=== PATIENT | male | born 1970 | race Caucasian/White ===

== ENCOUNTER 2022-03-14 23:42 | Emergency (ER) | payer SELFPAY ==
[~2022-03-14] VITALS: Ht 175.3 cm; Wt 72.7 kg
[2022-03-14 23:50] VITALS: BP 131/92
[2022-03-15] MEDS ORDERED: SULF1TAB49 PO (01:24)
[2022-03-15] MEDS ORDERED: sulfamethoxazole/trimethoprim DS (800/160mg) tablet PO ONE (01:25)
[2022-03-15] MEDS ORDERED: LIDOCAINE 1%/EPI 1:100,000 inj. 10 ML multi-dose vial IJ ONE (01:25)
[2022-03-15] MEDS ORDERED: TETanus/Pertussis (Acell)/Diphther VAC/PF (Tdap-Adult) 0.5ml syringe IMVAC ONE (01:25)
[2022-03-16] MEDS ORDERED: SULF1TAB49 PO (09:49)
== END 2022-03-15 02:07 | disposition home or self-care (01) ==
LOC: ER 23:42
DX: L02.11 Cutaneous abscess of neck (principal); L03.221 Cellulitis of neck; F17.200 Nicotine dependence, unspecified, uncomplicated; F15.90 Other stimulant use, unspecified, uncomplicated; Z79.2 Long term (current) use of antibiotics; W57.XXXA Bitten or stung by nonvenomous insect and other nonvenomous arthropods, initial encounter; Y93.89 Activity, other specified; Y92.89 Other specified places as the place of occurrence of the external cause; Y99.8 Other external cause status
CPT/HCPCS: 10060; 90471; 90715; 99283; A6449

== ENCOUNTER → 2022-03-15 | Emergency (ER) | payer SELFPAY ==
[~2022-03-15] VITALS: Ht 175.3 cm; Wt 72.7 kg
[~2022-03-15] MED LIST: SULF1TAB49 PO
[2022-03-15 16:04] VITALS: BP 152/91
== END | disposition left against medical advice (07) ==
LOC: ER 15:53
DX: S11.95XA Open bite of unspecified part of neck, initial encounter (principal); Z53.21 Procedure and treatment not carried out due to patient leaving prior to being seen by health care provider; W57.XXXA Bitten or stung by nonvenomous insect and other nonvenomous arthropods, initial encounter; Y93.9 Activity, unspecified; Y92.9 Unspecified place or not applicable; Y99.9 Unspecified external cause status

== ENCOUNTER 2022-03-16 07:57 | Emergency (ER) | payer SELFPAY ==
[~2022-03-16] VITALS: Ht 175.3 cm; Wt 72.7 kg
[2022-03-16 08:04] VITALS: BP 144/93
[2022-03-16] MEDS ORDERED: TETanus/Pertussis (Acell)/Diphther VAC/PF (Tdap-Adult) 0.5ml syringe IMVAC ONE (09:30)
[2022-03-16] MEDS ORDERED: LIDOcaine 1% w/EPI 1:100,000 30ml vial (MDV) IJ ONE (09:30)
[2022-03-16] MEDS ORDERED: SULF1TAB49 PO (09:49)
== END 2022-03-16 10:09 | disposition home or self-care (01) ==
LOC: ER 07:57
DX: L02.212 Cutaneous abscess of back [any part, except buttock and flank] (principal); F15.10 Other stimulant abuse, uncomplicated; Z79.899 Other long term (current) drug therapy
CPT/HCPCS: 10060; 90715; 99283; A6449

== ENCOUNTER 2022-03-17 19:44 | Emergency (ER) | payer SELFPAY ==
[~2022-03-17] VITALS: Ht 175.3 cm; Wt 61.9 kg
[2022-03-17 21:49] VITALS: BP 146/95
[2022-03-17] MEDS ORDERED: LIDOcaine 1% W/epiNEPHrine 1:100,000 20ml vial SQ ONE (23:30)
[2022-03-17] MEDS ORDERED: LIDOcaine 1% w/EPI 1:100,000 30ml vial (MDV) IJ ONE (23:35)
== END 2022-03-18 00:35 | disposition home or self-care (01) ==
LOC: ER 19:45
DX: L02.11 Cutaneous abscess of neck (principal); Z59.00 Homelessness unspecified; Z56.0 Unemployment, unspecified; F15.10 Other stimulant abuse, uncomplicated; Z79.899 Other long term (current) drug therapy
CPT/HCPCS: 10060; 99282

== ENCOUNTER 2022-03-18 23:46 | Emergency (ER) | payer OTHER ==
[~2022-03-18] VITALS: Ht 175.3 cm; Wt 70.0 kg
[2022-03-19 00:21] VITALS: BP 122/85
--- NOTE | 2022-03-19 00:32 | NUR ---
pt states he has 6 days of abx left to take . abx is for bug bites on neck.
== END 2022-03-19 00:50 | disposition home or self-care (01) ==
LOC: ER 23:47
DX: L02.212 Cutaneous abscess of back [any part, except buttock and flank] (principal); F17.200 Nicotine dependence, unspecified, uncomplicated; M54.2 Cervicalgia; Z59.00 Homelessness unspecified; Z56.0 Unemployment, unspecified
CPT/HCPCS: 99281

== ENCOUNTER 2022-03-26 03:18 | Emergency (ER) | payer SELFPAY ==
[~2022-03-26] VITALS: Ht 175.3 cm; Wt 68.1 kg
[2022-03-26 03:32] VITALS: BP 150/150
[2022-03-26] MEDS ORDERED: SULF1TAB49 PO (03:44)
== END 2022-03-26 03:54 | disposition home or self-care (01) ==
LOC: ER 03:19
DX: L08.9 Local infection of the skin and subcutaneous tissue, unspecified (principal); L02.212 Cutaneous abscess of back [any part, except buttock and flank]; F15.90 Other stimulant use, unspecified, uncomplicated; Z86.73 Personal history of transient ischemic attack (TIA), and cerebral infarction without residual deficits; Z56.0 Unemployment, unspecified; Z59.00 Homelessness unspecified; Z79.2 Long term (current) use of antibiotics
CPT/HCPCS: 99283

== ENCOUNTER 2022-04-01 00:20 | Emergency (ER) | payer SELFPAY ==
[~2022-04-01] VITALS: Ht 175.3 cm; Wt 70.5 kg
[2022-04-01 00:53] VITALS: BP 133/87
[2022-04-01] MEDS: DOXYCYCLINE 100MG CAPSULE PO STA (03:25)
== END 2022-04-01 03:29 | disposition home or self-care (01) ==
LOC: ER 00:21
DX: M79.10 Myalgia, unspecified site (principal); R50.9 Fever, unspecified; L08.89 Other specified local infections of the skin and subcutaneous tissue; F17.200 Nicotine dependence, unspecified, uncomplicated; Z59.00 Homelessness unspecified; Z56.0 Unemployment, unspecified; Z79.899 Other long term (current) drug therapy
CPT/HCPCS: 99283

== ENCOUNTER 2022-04-24 17:38 | Emergency (ER) | payer MEDICAID ==
[~2022-04-24] VITALS: Ht 172.7 cm; Wt 70.5 kg
[2022-04-24 17:41] VITALS: BP 142/90
[2022-04-24] MEDS ORDERED: MUPI22OI30 TOP (18:20)
== END 2022-04-24 18:27 | disposition home or self-care (01) ==
LOC: ER 17:38
DX: S11.95XA Open bite of unspecified part of neck, initial encounter (principal); S21.259A Open bite of unspecified back wall of thorax without penetration into thoracic cavity, initial encounter; F15.10 Other stimulant abuse, uncomplicated; Z59.00 Homelessness unspecified; Z56.0 Unemployment, unspecified; W57.XXXA Bitten or stung by nonvenomous insect and other nonvenomous arthropods, initial encounter; Y93.89 Activity, other specified; Y92.89 Other specified places as the place of occurrence of the external cause; Y99.8 Other external cause status
CPT/HCPCS: 99283

== ENCOUNTER 2022-05-01 02:59 | Emergency (ER) | payer MEDICAID ==
[~2022-05-01] VITALS: Ht 172.7 cm; Wt 67.3 kg
[~2022-05-01 02:59] MED LIST changes: +MUPI22OI30 TOP; -SULF1TAB49 PO
[2022-05-01 03:06] VITALS: BP 137/102
--- NOTE | 2022-05-01 03:10 | NUR ---
skin irritation to back of his neck.
== END 2022-05-01 04:57 | disposition home or self-care (01) ==
LOC: ER 03:01
DX: F22 Delusional disorders (principal); F15.20 Other stimulant dependence, uncomplicated; Z59.00 Homelessness unspecified; Z56.0 Unemployment, unspecified
CPT/HCPCS: 99281

== ENCOUNTER 2022-05-07 15:19 | Emergency (ER) | payer MEDICAID ==
[~2022-05-07] VITALS: Ht 174 cm; Wt 69.5 kg
[2022-05-07 16:17] VITALS: BP 132/91
== END 2022-05-07 18:22 | disposition home or self-care (01) ==
LOC: ER 15:20
DX: M54.2 Cervicalgia (principal); F22 Delusional disorders
CPT/HCPCS: 99281

== ENCOUNTER 2022-06-09 15:28 | Emergency (ER) | payer SELFPAY ==
[~2022-06-09] VITALS: Ht 175.3 cm; Wt 68.2 kg
[2022-06-09 16:04] VITALS: BP 141/99
[2022-06-09] MEDS ORDERED: MUPI22OI30 TOP (18:58)
== END 2022-06-09 19:18 | disposition home or self-care (01) ==
LOC: ER 15:29
DX: L03.811 Cellulitis of head [any part, except face] (principal); F22 Delusional disorders; F17.200 Nicotine dependence, unspecified, uncomplicated; F15.90 Other stimulant use, unspecified, uncomplicated; Z56.0 Unemployment, unspecified; Z59.00 Homelessness unspecified
CPT/HCPCS: 99283

== ENCOUNTER 2022-09-21 06:37 | Emergency (ER) | payer SELFPAY ==
[~2022-09-21] VITALS: Ht 175.3 cm; Wt 72.0 kg
[2022-09-21 06:49] VITALS: BP 169/107
[2022-09-21] MEDS ORDERED: PERM60CR19 TOP (20:13)
== END 2022-09-21 09:18 | disposition left against medical advice (07) ==
LOC: ER 06:38
DX: Z00.8 Encounter for other general examination (principal); Z53.21 Procedure and treatment not carried out due to patient leaving prior to being seen by health care provider
CPT/HCPCS: 99281

== ENCOUNTER 2022-09-21 17:13 | Emergency (ER) | payer SELFPAY ==
[~2022-09-21] VITALS: Ht 175.3 cm; Wt 65.2 kg
[2022-09-21 19:18] VITALS: BP 141/92
[2022-09-21] MEDS ORDERED: PERM60CR19 TOP (20:13)
== END 2022-09-21 20:17 | disposition home or self-care (01) ==
LOC: ER 17:13
DX: S00.96XA Insect bite (nonvenomous) of unspecified part of head, initial encounter (principal); F15.20 Other stimulant dependence, uncomplicated; Z59.00 Homelessness unspecified; Z56.0 Unemployment, unspecified; W57.XXXA Bitten or stung by nonvenomous insect and other nonvenomous arthropods, initial encounter; Y93.89 Activity, other specified; Y92.89 Other specified places as the place of occurrence of the external cause; Y99.8 Other external cause status
CPT/HCPCS: 99282

== ENCOUNTER 2022-10-06 22:44 | Emergency (ER) | payer SELFPAY ==
[~2022-10-06 22:44] MED LIST changes: -MUPI22OI30 TOP; +PERM60CR19 TOP
== END 2022-10-06 23:55 | disposition left against medical advice (07) ==
LOC: ER 22:45
DX: R11.10 Vomiting, unspecified (principal); Z53.21 Procedure and treatment not carried out due to patient leaving prior to being seen by health care provider

== ENCOUNTER 2022-11-07 00:06 | Emergency (ER) | payer OTHER ==
[~2022-11-07] VITALS: Ht 175.3 cm; Wt 68.2 kg
[2022-11-07 00:11] VITALS: BP 131/90
[2022-11-07] MEDS ORDERED: LIDOcaine 1% W/epiNEPHrine 1:100,000 20ml vial SQ ONE (01:05)
[2022-11-07] MEDS ORDERED: bacitracin 15gm ointment TP ONE (01:20)
[2022-11-07] MEDS ORDERED: cephalexin 250mg capsule PO ONE (01:20)
[2022-11-07] MEDS ORDERED: CEPH-585 PO (01:24)
== END 2022-11-07 03:25 | disposition home or self-care (01) ==
LOC: ER 00:06
DX: L02.811 Cutaneous abscess of head [any part, except face] (principal); F17.200 Nicotine dependence, unspecified, uncomplicated; F15.20 Other stimulant dependence, uncomplicated; Z59.00 Homelessness unspecified; Z56.0 Unemployment, unspecified
CPT/HCPCS: 10060; 99283; A6449

== ENCOUNTER 2022-12-06 23:15 | Emergency (ER) | payer SELFPAY ==
[~2022-12-06] VITALS: Ht 172.7 cm; Wt 68.2 kg
[2022-12-06 23:22] VITALS: BP 141/96
[2022-12-06] MEDS ORDERED: CEPH-585 PO (23:47)
== END 2022-12-07 | disposition home or self-care (01) ==
LOC: ER 23:16
DX: L02.212 Cutaneous abscess of back [any part, except buttock and flank] (principal); F15.20 Other stimulant dependence, uncomplicated; Z59.00 Homelessness unspecified; Z56.0 Unemployment, unspecified
CPT/HCPCS: 99283

== ENCOUNTER 2023-02-19 16:22 | Emergency (ER) | payer SELFPAY ==
[~2023-02-19] VITALS: Ht 175.3 cm; Wt 74.5 kg
[~2023-02-19 16:22] MED LIST changes: +CEPH-585 PO; -PERM60CR19 TOP
[2023-02-19 17:33] VITALS: BP 136/93; PULSE 99; RESP 15; TEMP 97.8; O2SAT 100
[2023-02-19] MEDS ORDERED: PERM60CR19 TOP (17:43)
--- NOTE | 2023-02-19 17:52 | NUR ---
PT DC [facility].
== END 2023-02-19 17:52 | disposition home or self-care (01) ==
LOC: ER 16:22
DX: B86 Scabies (principal); F15.90 Other stimulant use, unspecified, uncomplicated; Z56.0 Unemployment, unspecified; Z59.00 Homelessness unspecified; Z79.2 Long term (current) use of antibiotics
CPT/HCPCS: 99282; 99283

== ENCOUNTER 2023-04-15 05:16 | Emergency (ER) | payer SELFPAY ==
[~2023-04-15] VITALS: Ht 175.3 cm; Wt 68.2 kg
[~2023-04-15 05:16] MED LIST changes: +ASPI-1264 PO; +FURO-149 PO
[2023-04-15 06:12] LABS: BASOPHILS # (AUTO) 0.3 X10'3 (0-0.2); BASOPHILS % (AUTO) 1.9 % (0-1); EOSINOPHILS # (AUTO) 0.4 X10'3 (0-0.9); EOSINOPHILS % (AUTO) 2.6 % (0-6); HEMATOCRIT 42.3 % (42.0-52.0); HEMOGLOBIN 14.1 g/dl (14.0-17.9); LYMPHOCYTES # (AUTO) 2.3 X10'3 (1.1-4.8); LYMPHOCYTES % (AUTO) 17.3 % (21-51); MEAN CORPUSCULAR HEMOGLOBIN 29.2 PG (27.0-31.0); MEAN CORPUSCULAR HGB CONC 33.4 g/dL (33.0-36.5); MEAN CORPUSCULAR VOLUME 87.4 FL (78-98); MEAN PLATELET VOLUME 7.8 FL (7.4-10.4); MONOCYTES # (AUTO) 0.6 X10'3 (0-0.9); MONOCYTES % (AUTO) 4.7 % (2-12); NEUTROPHILS % (AUTO) 73.5 % (42-75); PLATELET COUNT 374 X10'3 (140-440); RED BLOOD COUNT 4.84 X10'6 (4.70-6.10); RED CELL DISTRIBUTION WIDTH 15.7 % (11.5-14.5); WHITE BLOOD COUNT 13.6 X10'3 (4.5-11.0)
[2023-04-15 06:15] LABS: ALANINE AMINOTRANSFERASE 85 U/L (12-78); ALBUMIN/GLOBULIN RATIO 0.8 (1.1-1.5); ALKALINE PHOSPHATASE 71 IU/L (46-116); ANION GAP 7 (8-16); ASPARTATE AMINO TRANSFERASE 46 U/L (10-37); BILIRUBIN,TOTAL 0.4 MG/DL (0.1-1.0); BLOOD UREA NITROGEN 26 MG/DL (7-18); CALCIUM 8.5 MG/DL (8.5-10.1); CHLORIDE 103 MMOL/L (99-107); CREATININE 1.37 MG/DL (0.60-1.10); GLUCOSE 120 MG/DL (70-104); SODIUM 137 MMOL/L (135-145); TOTAL CARBON DIOXIDE 27.3 MMOL/L (24-32); TOTAL PROTEIN 6.7 G/DL (6.4-8.2); eCRCL 62 ML/MIN; eGFR 55 ML/MIN
[2023-04-15 06:17] LABS: POTASSIUM 4.3 MMOL/L (3.5-5.1); PRO BRAIN NATRIURETIC PEPTIDE 16260 PG/ML (0-125)
[2023-04-15] MEDS ORDERED: furosemide 10 MG/1 ML 10ml inj IV ONE (06:25)
[2023-04-15 06:44] VITALS: BP 139/99; PULSE 117; TEMP 97.6; O2SAT 98
[2023-04-15 06:58] LABS: APTT 27 SECONDS (22-32); PROTHROMBIN TIME 11.1 SECONDS (9.0-12.0)
[2023-04-15 07:02] VITALS: RESP 19
== END 2023-04-15 08:49 | disposition left against medical advice (07) ==
LOC: ER 05:17
DX: I50.9 Heart failure, unspecified (principal); Z91.199 Patient's noncompliance with other medical treatment and regimen due to unspecified reason; J44.9 Chronic obstructive pulmonary disease, unspecified; F15.90 Other stimulant use, unspecified, uncomplicated; Z79.82 Long term (current) use of aspirin; Z79.899 Other long term (current) drug therapy
CPT/HCPCS: 36415; 71045; 80053; 83880; 84484; 85025; 85610; 85730; 93005; 96374; 99285; J1940

== ENCOUNTER 2023-04-28 19:37 | Inpatient (IN) | payer MEDICAID ==
[~2023-04-28] VITALS: Ht 175.3 cm; Wt 66.5 kg
[~2023-04-28 19:37] MED LIST changes: -CEPH-585 PO
[2023-04-28] MEDS ORDERED: carVEDilol 3.125mg tablet PO ONE (20:05)
[2023-04-28] MEDS ORDERED: carVEDilol 3.125mg tablet PO SCH (20:05)
[2023-04-28] MEDS ORDERED: nitroGLYCERIN 0.4mg/hour patch TD ONE (20:20)
[2023-04-28] MEDS ORDERED: aspirin 81mg tab.chew PO ONE (20:20)
[2023-04-28 20:30] LABS: BASOPHILS # (AUTO) 0.1 X10'3 (0-0.2); BASOPHILS % (AUTO) 1.3 % (0-1); EOSINOPHILS # (AUTO) 0.2 X10'3 (0-0.9); EOSINOPHILS % (AUTO) 1.4 % (0-6); HEMATOCRIT 39.3 % (42.0-52.0); HEMOGLOBIN 13.1 g/dl (14.0-17.9); LYMPHOCYTES # (AUTO) 2.6 X10'3 (1.1-4.8); LYMPHOCYTES % (AUTO) 24.3 % (21-51); MEAN CORPUSCULAR HEMOGLOBIN 29.2 PG (27.0-31.0); MEAN CORPUSCULAR HGB CONC 33.4 g/dL (33.0-36.5); MEAN CORPUSCULAR VOLUME 87.4 FL (78-98); MEAN PLATELET VOLUME 7.9 FL (7.4-10.4); MONOCYTES # (AUTO) 0.7 X10'3 (0-0.9); MONOCYTES % (AUTO) 6.6 % (2-12); NEUTROPHILS % (AUTO) 66.4 % (42-75); PLATELET COUNT 394 X10'3 (140-440); RED BLOOD COUNT 4.49 X10'6 (4.70-6.10); RED CELL DISTRIBUTION WIDTH 15.3 % (11.5-14.5); WHITE BLOOD COUNT 10.6 X10'3 (4.5-11.0)
[2023-04-28] MEDS ORDERED: nitroGLYCERIN 0.4mg SUBLingual tab SL PRN (20:30)
[2023-04-28 20:44] LABS: APTT 27 SECONDS (22-32); INR 1.4 INR; PROTHROMBIN TIME 14.4 SECONDS (9.0-12.0)
[2023-04-28 20:45] LABS: ALANINE AMINOTRANSFERASE 169 U/L (12-78); ALBUMIN 2.6 G/DL (3.4-5.0); ALBUMIN/GLOBULIN RATIO 0.7 (1.1-1.5); ALKALINE PHOSPHATASE 71 IU/L (46-116); ANION GAP 11 (8-16); ASPARTATE AMINO TRANSFERASE 49 U/L (10-37); BILIRUBIN,TOTAL 0.7 MG/DL (0.1-1.0); BLOOD UREA NITROGEN 32 MG/DL (7-18); BUN/CREATININE RATIO 20.8 (10.0-20.0); CALCIUM 8.8 MG/DL (8.5-10.1); CHLORIDE 101 MMOL/L (99-107); CREATININE 1.54 MG/DL (0.60-1.10); GLUCOSE 126 MG/DL (70-104); POTASSIUM 4.5 MMOL/L (3.5-5.1); SODIUM 136 MMOL/L (135-145); TOTAL PROTEIN 6.1 G/DL (6.4-8.2); eCRCL 57 ML/MIN; eGFR 48 ML/MIN
--- NOTE | 2023-04-28 20:46 | NUR ---
REVIEWED COPYWRITER ASSESSMENT, AGREE WITH ASSESSMENT.
[2023-04-28 20:53] LABS: PRO BRAIN NATRIURETIC PEPTIDE 22518 PG/ML (0-125)
[2023-04-28 20:54] LABS: ETHANOL < 10 MG/DL (<10)
[2023-04-28] MEDS ORDERED: metoprolol tartrate 1mg/ml inj IV ONE (21:05)
--- NOTE | 2023-04-28 21:20 | NUR ---
PATIENT YELLING, "I CAN'T BREATH." MD AT BEDSIDE, REPEAT EKG PERFORMED.
[2023-04-28] MEDS ORDERED: LORazepam 2 mg/ml vial IV ONE (21:25)
[2023-04-28] MEDS ORDERED: heparin 25,000 UNIT/250ml bag 250 ML IV PRN (21:25)
[2023-04-28] MEDS ORDERED: heparin 10,000 units/1 ML INJ IV ONE (21:25)
[2023-04-28] MEDS ORDERED: heparin 10,000 units/1 ML INJ IV PRN (21:30)
--- NOTE | 2023-04-28 21:34 | NUR ---
HOSPITALIST AT BEDSIDE
[2023-04-28] MEDS ORDERED: magnesium 2GM in 50ml NS 50 ML IV PRN (22:10)
[2023-04-28] MEDS ORDERED: HYDROcodone/acetaminophen 10/325mg tab PO PRN (22:10)
[2023-04-28] MEDS ORDERED: PERFLUTREN PROTEIN-A MICROSPHR (Optison) 0.22 MG/ML 3ML VIAL IV PRN (22:10)
[2023-04-28] MEDS ORDERED: magnesium hydroxide 30ml (MOM) UD suspension PO PRN (22:10)
[2023-04-28] MEDS ORDERED: mag hydrox/Alum hydrox/simeth 30ml oral suspension PO PRN (22:10)
[2023-04-28] MEDS ORDERED: albuterol 2.5 MG/3 ML nebule NEB PRN (22:10)
[2023-04-28] MEDS ORDERED: magnesium 4gm in 100ml NS 100 ML IV PRN (22:10)
[2023-04-28] MEDS ORDERED: ondansetron/PF 4mg/2ml inj IV PRN (22:10)
[2023-04-28] MEDS ORDERED: potassium Cl 20 mEq SR tablet PO PRN ×2 (22:10)
[2023-04-28] MEDS ORDERED: ipratropium/albuterol 3ml nebule NEB PRN (22:10)
[2023-04-28] MEDS ORDERED: acetaminophen 325mg tablet PO PRN ×2 (22:10)
[2023-04-28] MEDS ORDERED: potassium Cl 40MEQ/1/2NS 520ml 520 ML IV PRN (22:10)
[2023-04-28 23:12] VITALS: PULSE 99; RESP 14; O2SAT 99
--- NOTE | 2023-04-28 23:32 | NUR ---
PATIENT RESTING IN BED WITH EYES CLOSED, RESPIRATIONS EVEN AND UNLABORED, NO ACUTE DISTRESS NOTED AT THIS TIME. CALL LIGHT WITHIN REACH.
--- NOTE | 2023-04-28 23:58 | NUR ---
ATTEMPTED TO CALL REPORT TO PCU, NURSE NOT ASSIGNED AT THIS TIME, TO CALL BACK.
[2023-04-29] VITALS (11 sets, daily range): BP systolic 92–118; BP diastolic 61–93; PULSE 90–108; RESP 12–18; TEMP 97.4–98.8; O2SAT 90–99
--- NOTE | 2023-04-29 02:44 | NUR ---
provider paged PAGER ID: [phone] MESSAGE: [id number]. Machelle Newton Pt came to unit on heparin gtt, in order history looks like heparin gtt is complete and pt is to get sub Q heparin 5,000 units. Please clarify if pt should be off heparin gtt. Liz Stanley RN, [phone]
--- NOTE | 2023-04-29 02:47 | NUR ---
heparin gtt discontinued and pt will get sub Q heparin per MD orders since pts triponins are WNL.
--- NOTE | 2023-04-29 06:19 | NUR ---
Patient in room PCU 3016. I have received report from yane DUMONT and had the opportunity to ask questions and assume patient care.
--- NOTE | 2023-04-29 06:19 | NUR ---
Problems reprioritized. Patient report given, questions answered & plan of care reviewed with Mando DUMONT. Pt stable at shift change.
[2023-04-29] MEDS: K and/or MAG REPLACEMENT MC SCH ×2 (08:00→20:00)
[2023-04-29 08:10] LABS: BASOPHILS # (AUTO) 0.2 X10'3 (0-0.2); BASOPHILS % (AUTO) 1.9 % (0-1); EOSINOPHILS # (AUTO) 0.3 X10'3 (0-0.9); EOSINOPHILS % (AUTO) 2.3 % (0-6); HEMATOCRIT 40.7 % (42.0-52.0); HEMOGLOBIN 13.3 g/dl (14.0-17.9); LYMPHOCYTES # (AUTO) 2.4 X10'3 (1.1-4.8); LYMPHOCYTES % (AUTO) 21.8 % (21-51); MEAN CORPUSCULAR HEMOGLOBIN 28.7 PG (27.0-31.0); MEAN CORPUSCULAR HGB CONC 32.7 g/dL (33.0-36.5); MEAN CORPUSCULAR VOLUME 87.8 FL (78-98); MEAN PLATELET VOLUME 8.3 FL (7.4-10.4); MONOCYTES # (AUTO) 0.8 X10'3 (0-0.9); MONOCYTES % (AUTO) 7.6 % (2-12); NEUTROPHILS # (AUTO) 7.4 X10'3 (1.8-7.7); NEUTROPHILS % (AUTO) 66.4 % (42-75); PLATELET COUNT 383 X10'3 (140-440); RED BLOOD COUNT 4.64 X10'6 (4.70-6.10); RED CELL DISTRIBUTION WIDTH 15.2 % (11.5-14.5); WHITE BLOOD COUNT 11.1 X10'3 (4.5-11.0)
[2023-04-29] MEDS: docusate sod 100mg capsule PO SCH ×2 (08:19→20:41)
[2023-04-29] MEDS: furosemide 20 MG/2 ML vial IV SCH ×2 (08:19→20:02)
[2023-04-29] MEDS: heparin, porcine 5000 units/ml vial SQ SCH ×2 (08:20→20:42)
[2023-04-29 08:27] LABS: ALANINE AMINOTRANSFERASE 154 U/L (12-78); ALBUMIN 2.5 G/DL (3.4-5.0); ALBUMIN/GLOBULIN RATIO 0.8 (1.1-1.5); ALKALINE PHOSPHATASE 63 IU/L (46-116); ANION GAP 11 (8-16); ASPARTATE AMINO TRANSFERASE 45 U/L (10-37); BILIRUBIN,TOTAL 0.9 MG/DL (0.1-1.0); BLOOD UREA NITROGEN 27 MG/DL (7-18); BUN/CREATININE RATIO 19.9 (10.0-20.0); CALCIUM 8.6 MG/DL (8.5-10.1); CHLORIDE 103 MMOL/L (99-107); CREATININE 1.36 MG/DL (0.60-1.10); GLUCOSE 98 MG/DL (70-104); POTASSIUM 4.4 MMOL/L (3.5-5.1); SODIUM 136 MMOL/L (135-145); TOTAL CARBON DIOXIDE 22.4 MMOL/L (24-32); TOTAL PROTEIN 5.8 G/DL (6.4-8.2); eCRCL 61 ML/MIN; eGFR 55 ML/MIN
[2023-04-29 08:31] LABS: MAGNESIUM 1.9 MG/DL (1.5-2.4)
[2023-04-29 11:11] LABS: BILIRUBIN,URINE NEGATIVE (Neg); CLARITY,URINE CLEAR (Clear); COLOR,URINE YELLOW (Yellow); GLUCOSE, URINE NEGATIVE (Neg); KETONES,URINE NEGATIVE (Neg); LEUKOCYTE ESTERASE ,URINE NEGATIVE (Neg); NITRITES, URINE NEGATIVE (Neg); OCCULT BLOOD,URINE NEGATIVE (Neg); PH,URINE 5.5 (4.8-8.0); PROTEIN,URINE NEGATIVE (Neg); UROBILINOGEN,URINE 0.2 E.U/dL (0.2-1.0)
[2023-04-29 11:18] LABS: UA COLLECTION TYPE NON-SPECIFIED
[2023-04-29 11:30] LABS: URINE AMPHETAMINE SCREEN NEGATIVE (Neg); URINE BARBITUATE SCREEN NEGATIVE (Neg); URINE BENZODIAZEPINES SCREEN NEGATIVE (Neg); URINE CANNABINOID SCREEN NEGATIVE (Neg); URINE COCAINE SCREEN NEGATIVE (Neg); URINE OPIATE SCREEN NEGATIVE (Neg); URINE PHENCYCLIDINE SCREEN NEGATIVE (Neg)
[2023-04-29] MEDS ORDERED: FURO40TA4 PO (12:47)
[2023-04-29] MEDS ORDERED: ASPI-103 PO (12:47)
[2023-04-29] MEDS: HYDROcodone/acetaminophen 5mg/325mg tablet PO PRN (14:13)
--- NOTE | 2023-04-29 18:29 | NUR ---
Problems reprioritized. Patient report given TO ROSI RN, questions answered & plan of care reviewed with .
[2023-04-29] MEDS: carvedilol 6.25mg tablet PO SCH (20:41)
[2023-04-29] MEDS: sacubitril/valsartan 24mg-26mg tablet PO SCH (20:42)
[2023-04-30] VITALS (11 sets, daily range): BP systolic 91–121; BP diastolic 67–88; PULSE 71–99; RESP 14–20; TEMP 97–97.6; O2SAT 90–100
--- NOTE | 2023-04-30 06:43 | NUR ---
Patient in room PCU 3016. I have received report from ROSI RN and had the opportunity to ask questions and assume patient care.
[2023-04-30] MEDS: K and/or MAG REPLACEMENT MC SCH ×2 (08:00→20:00)
--- NOTE | 2023-04-30 08:26 | NUR ---
PAGER ID: [phone] MESSAGE: JULIA BAUTISTA, PCU, [id number], RE: [id number]. POSS. NASAL MRSA SWAB. LD
[2023-04-30] MEDS: carvedilol 6.25mg tablet PO SCH ×2 (08:32→21:51)
[2023-04-30] MEDS: aspirin 325mg tablet, delayed-release (Ecotrin) PO SCH (08:32)
[2023-04-30] MEDS: furosemide 20 MG/2 ML vial IV SCH ×2 (08:34→21:53)
[2023-04-30] MEDS: docusate sod 100mg capsule PO SCH ×2 (08:34→21:50)
[2023-04-30] MEDS: EMPAGLIFLOZIN 10 MG TABLET PO SCH (08:34)
[2023-04-30] MEDS: heparin, porcine 5000 units/ml vial SQ SCH ×2 (08:34→21:53)
[2023-04-30] MEDS: sacubitril/valsartan 24mg-26mg tablet PO SCH ×2 (08:35→21:50)
[2023-04-30 08:41] LABS: BASOPHILS # (AUTO) 0.1 X10'3 (0-0.2); BASOPHILS % (AUTO) 0.9 % (0-1); EOSINOPHILS # (AUTO) 0.3 X10'3 (0-0.9); EOSINOPHILS % (AUTO) 2.6 % (0-6); HEMATOCRIT 41.6 % (42.0-52.0); HEMOGLOBIN 13.5 g/dl (14.0-17.9); LYMPHOCYTES # (AUTO) 2.4 X10'3 (1.1-4.8); LYMPHOCYTES % (AUTO) 17.4 % (21-51); MEAN CORPUSCULAR HEMOGLOBIN 28.7 PG (27.0-31.0); MEAN CORPUSCULAR HGB CONC 32.5 g/dL (33.0-36.5); MEAN CORPUSCULAR VOLUME 88.2 FL (78-98); MEAN PLATELET VOLUME 8.4 FL (7.4-10.4); MONOCYTES # (AUTO) 0.8 X10'3 (0-0.9); NEUTROPHILS % (AUTO) 73.1 % (42-75); PLATELET COUNT 376 X10'3 (140-440); RED BLOOD COUNT 4.71 X10'6 (4.70-6.10); RED CELL DISTRIBUTION WIDTH 15.1 % (11.5-14.5); WHITE BLOOD COUNT 13.6 X10'3 (4.5-11.0)
[2023-04-30 08:51] LABS: ALANINE AMINOTRANSFERASE 118 U/L (12-78); ALBUMIN 2.3 G/DL (3.4-5.0); ALBUMIN/GLOBULIN RATIO 0.7 (1.1-1.5); ALKALINE PHOSPHATASE 63 IU/L (46-116); ANION GAP 10 (8-16); ASPARTATE AMINO TRANSFERASE 32 U/L (10-37); BILIRUBIN,TOTAL 0.4 MG/DL (0.1-1.0); BLOOD UREA NITROGEN 35 MG/DL (7-18); BUN/CREATININE RATIO 26.5 (10.0-20.0); CALCIUM 8.4 MG/DL (8.5-10.1); CHLORIDE 103 MMOL/L (99-107); CREATININE 1.32 MG/DL (0.60-1.10); GLUCOSE 100 MG/DL (70-104); MAGNESIUM 1.8 MG/DL (1.5-2.4); POTASSIUM 4.2 MMOL/L (3.5-5.1); SODIUM 135 MMOL/L (135-145); TOTAL PROTEIN 5.7 G/DL (6.4-8.2); eCRCL 63 ML/MIN; eGFR 57 ML/MIN
[2023-04-30] MEDS ORDERED: CefTRIAXone/D5W-Rocephin 1gm 50 ML IV ONE (09:00)
[2023-04-30] MEDS ORDERED: azithromycin 250mg tablet PO ONE (09:00)
--- NOTE | 2023-04-30 12:21 | NUR ---
PT. 02 SATURATION REPORTED AT 89% WHEN SLEEPING, BUT BETTER 95 AND ABOVE IN THE DAYTIME. PT. ON 2L NC ON MY MORNING SHIFT. TITRATED TO 1L PER DM ORDERS. WILL CONTINUE TO MONITOR. Addendum: 04/30/23 at 1248 by Aman Rock RN PT. 99% RA. PT. ONLY FALLS TO 89% AT NIGHT.
--- NOTE | 2023-04-30 18:32 | NUR ---
Problems reprioritized. Patient report given TO EDGARDO DUMONT, questions answered & plan of care reviewed with .
--- NOTE | 2023-04-30 18:40 | NUR ---
Patient in room PCU 3016. I have received report from Mando DUMONT and had the opportunity to ask questions and assume patient care.
[2023-05-01 02:00] VITALS: BP 106/74; PULSE 83; RESP 22; TEMP 96.7; O2SAT 98
[2023-05-01] MEDS: HYDROcodone/acetaminophen 5mg/325mg tablet PO PRN (02:21)
[2023-05-01 05:24] VITALS: O2SAT 90
[2023-05-01 06:00] VITALS: BP 106/81; PULSE 96; RESP 16; TEMP 97.7; O2SAT 98
--- NOTE | 2023-05-01 06:47 | NUR ---
Patient in room PCU 3016. I have received report from EDGARDO DUMONT and had the opportunity to ask questions and assume patient care.
--- NOTE | 2023-05-01 06:50 | NUR ---
Problems reprioritized. Patient report given, questions answered & plan of care reviewed with Mando DUMONT.
[2023-05-01 07:14] LABS: BASOPHILS # (AUTO) 0.1 X10'3 (0-0.2); EOSINOPHILS # (AUTO) 0.5 X10'3 (0-0.9); EOSINOPHILS % (AUTO) 3.3 % (0-6); HEMATOCRIT 44.6 % (42.0-52.0); HEMOGLOBIN 14.8 g/dl (14.0-17.9); LYMPHOCYTES # (AUTO) 2.8 X10'3 (1.1-4.8); LYMPHOCYTES % (AUTO) 20.6 % (21-51); MEAN CORPUSCULAR HGB CONC 33.1 g/dL (33.0-36.5); MEAN CORPUSCULAR VOLUME 87.6 FL (78-98); MEAN PLATELET VOLUME 8.8 FL (7.4-10.4); MONOCYTES # (AUTO) 0.9 X10'3 (0-0.9); MONOCYTES % (AUTO) 6.5 % (2-12); NEUTROPHILS # (AUTO) 9.3 X10'3 (1.8-7.7); NEUTROPHILS % (AUTO) 68.6 % (42-75); PLATELET COUNT 443 X10'3 (140-440); WHITE BLOOD COUNT 13.5 X10'3 (4.5-11.0)
[2023-05-01 07:37] LABS: ALANINE AMINOTRANSFERASE 100 U/L (12-78); ALBUMIN 2.4 G/DL (3.4-5.0); ALBUMIN/GLOBULIN RATIO 0.6 (1.1-1.5); ALKALINE PHOSPHATASE 59 IU/L (46-116); ANION GAP 5 (8-16); ASPARTATE AMINO TRANSFERASE 28 U/L (10-37); BILIRUBIN,TOTAL 0.4 MG/DL (0.1-1.0); BLOOD UREA NITROGEN 31 MG/DL (7-18); BUN/CREATININE RATIO 22.8 (10.0-20.0); CALCIUM 8.7 MG/DL (8.5-10.1); CHLORIDE 102 MMOL/L (99-107); CREATININE 1.36 MG/DL (0.60-1.10); GLUCOSE 97 MG/DL (70-104); SODIUM 133 MMOL/L (135-145); TOTAL CARBON DIOXIDE 26.5 MMOL/L (24-32); TOTAL PROTEIN 6.2 G/DL (6.4-8.2); eCRCL 61 ML/MIN; eGFR 55 ML/MIN
[2023-05-01] MEDS ORDERED: CefTRIAXone/D5W-Rocephin 1gm 50 ML IV SCH (08:00)
[2023-05-01] MEDS: K and/or MAG REPLACEMENT MC SCH (08:00)
[2023-05-01] MEDS ORDERED: azithromycin 250mg tablet PO SCH (08:00)
[2023-05-01] MEDS: furosemide 20 MG/2 ML vial IV SCH (08:25)
[2023-05-01] MEDS: aspirin 325mg tablet, delayed-release (Ecotrin) PO SCH (08:26)
[2023-05-01] MEDS: heparin, porcine 5000 units/ml vial SQ SCH (08:26)
[2023-05-01] MEDS: docusate sod 100mg capsule PO SCH (08:26)
[2023-05-01] MEDS: sacubitril/valsartan 24mg-26mg tablet PO SCH (08:26)
[2023-05-01] MEDS: EMPAGLIFLOZIN 10 MG TABLET PO SCH (08:27)
[2023-05-01] MEDS: carvedilol 6.25mg tablet PO SCH (08:27)
--- NOTE | 2023-05-01 10:12 | NUR ---
PT. LEFT AMA, WAS TOLD ABOUT THE CONSEQUENCES OF LEAVING WITHOUT DOCTORS ADVICE. IV CANULA WHOLE AND INTACT UPON REMOVAL. PT. LEFT WITH ALL BELONGINGS. PT SAFELY ESCORTED OUT OF BUILDING. PT. WAS STABLE, ALERT, AND ORIENTATED WHEN HE LEFT AMA.
== END 2023-05-01 09:54 | disposition left against medical advice (07) | DRG 194 ==
LOC: ER 19:38 → ED HOLD 22:15 → EDBEDREQ 23:53 → PCU 3S 04-29 00:41
PROVIDERS: ADMIT Family Medicine; ATTEND Family Medicine
DX: I50.43 Acute on chronic combined systolic (congestive) and diastolic (congestive) heart failure (principal); N17.0 Acute kidney failure with tubular necrosis; F17.290 Nicotine dependence, other tobacco product, uncomplicated; J44.9 Chronic obstructive pulmonary disease, unspecified; R40.0 Somnolence; F41.9 Anxiety disorder, unspecified; Z53.21 Procedure and treatment not carried out due to patient leaving prior to being seen by health care provider; N18.9 Chronic kidney disease, unspecified; Z79.82 Long term (current) use of aspirin; Z79.899 Other long term (current) drug therapy; Z82.49 Family history of ischemic heart disease and other diseases of the circulatory system; Z59.00 Homelessness unspecified
CPT/HCPCS: 36415; 71045; 80053; 80305; 80320; 81003; 83605; 83735; 83880; 84484; 85025; 85610; 85730; 87040; 87081; 93005; 93306; 94760; 99285; G0378; J0696; J1644; J1940; J2060; J3490

== ENCOUNTER 2023-05-06 02:32 | Emergency (ER) | payer MEDICAID ==
[~2023-05-06] VITALS: Ht 175.3 cm; Wt 70.5 kg
[~2023-05-06 02:32] MED LIST changes: +ASPI-103 PO; -ASPI-1264 PO; -FURO-149 PO; +FURO40TA4 PO
--- NOTE | 2023-05-06 03:02 | NUR ---
MSE COMPLETED BY DR DAVIS
[2023-05-06 03:10] LABS: BASOPHILS # (AUTO) 0.2 X10'3 (0-0.2); BASOPHILS % (AUTO) 1.4 % (0-1); EOSINOPHILS # (AUTO) 0.2 X10'3 (0-0.9); EOSINOPHILS % (AUTO) 1.9 % (0-6); HEMOGLOBIN 12.3 g/dl (14.0-17.9); LYMPHOCYTES # (AUTO) 2.9 X10'3 (1.1-4.8); LYMPHOCYTES % (AUTO) 24.5 % (21-51); MEAN CORPUSCULAR HEMOGLOBIN 28.5 PG (27.0-31.0); MEAN CORPUSCULAR HGB CONC 32.3 g/dL (33.0-36.5); MEAN CORPUSCULAR VOLUME 88.2 FL (78-98); MEAN PLATELET VOLUME 7.7 FL (7.4-10.4); MONOCYTES % (AUTO) 8.4 % (2-12); NEUTROPHILS # (AUTO) 7.5 X10'3 (1.8-7.7); NEUTROPHILS % (AUTO) 63.8 % (42-75); PLATELET COUNT 353 X10'3 (140-440); RED BLOOD COUNT 4.31 X10'6 (4.70-6.10); RED CELL DISTRIBUTION WIDTH 15.5 % (11.5-14.5); WHITE BLOOD COUNT 11.7 X10'3 (4.5-11.0)
[2023-05-06 03:14] LABS: ALANINE AMINOTRANSFERASE 88 U/L (12-78); ALBUMIN 2.7 G/DL (3.4-5.0); ALBUMIN/GLOBULIN RATIO 0.9 (1.1-1.5); ALKALINE PHOSPHATASE 87 IU/L (46-116); ANION GAP 9 (8-16); ASPARTATE AMINO TRANSFERASE 52 U/L (10-37); BILIRUBIN,TOTAL 0.3 MG/DL (0.1-1.0); BLOOD UREA NITROGEN 35 MG/DL (7-18); BUN/CREATININE RATIO 17.3 (10.0-20.0); CALCIUM 8.7 MG/DL (8.5-10.1); CHLORIDE 103 MMOL/L (99-107); CREATININE 2.02 MG/DL (0.60-1.10); GLUCOSE 122 MG/DL (70-104); POTASSIUM 4.2 MMOL/L (3.5-5.1); SODIUM 136 MMOL/L (135-145); TOTAL CARBON DIOXIDE 24.3 MMOL/L (24-32); TOTAL PROTEIN 5.7 G/DL (6.4-8.2); eCRCL 44 ML/MIN; eGFR 35 ML/MIN
[2023-05-06] MEDS ORDERED: albuterol 2.5 MG/3 ML nebule NEB ONE (03:20)
[2023-05-06 03:22] LABS: MAGNESIUM 2.1 MG/DL (1.5-2.4); PRO BRAIN NATRIURETIC PEPTIDE 21549 PG/ML (0-125)
[2023-05-06 03:40] VITALS: PULSE 111; RESP 17; O2SAT 95
[2023-05-06 03:46] VITALS: PULSE 113; RESP 18; O2SAT 100
[2023-05-06 05:05] VITALS: BP 138/74; PULSE 101; RESP 14; TEMP 97.8; O2SAT 98
== END 2023-05-06 05:08 | disposition home or self-care (01) ==
LOC: ER 02:32
DX: R06.00 Dyspnea, unspecified (principal); I50.9 Heart failure, unspecified; J44.9 Chronic obstructive pulmonary disease, unspecified; F15.90 Other stimulant use, unspecified, uncomplicated; Z79.82 Long term (current) use of aspirin; Z79.899 Other long term (current) drug therapy
CPT/HCPCS: 36415; 71045; 80053; 83735; 83880; 84484; 85025; 93005; 94640; 94760; 99285

== ENCOUNTER 2023-05-07 21:30 | Inpatient (IN) | payer MEDICAID ==
[~2023-05-07] VITALS: Ht 175.3 cm; Wt 60.6 kg
[2023-05-07 22:36] LABS: MEAN PLATELET VOLUME 8.3 FL (7.4-10.4)
[2023-05-07 22:38] LABS: BASOPHILS # (AUTO) 0.2 X10'3 (0-0.2); BASOPHILS % (AUTO) 1.4 % (0-1); EOSINOPHILS # (AUTO) 0.2 X10'3 (0-0.9); EOSINOPHILS % (AUTO) 1.5 % (0-6); HEMATOCRIT 42.7 % (42.0-52.0); HEMOGLOBIN 13.8 g/dl (14.0-17.9); LYMPHOCYTES # (AUTO) 3.1 X10'3 (1.1-4.8); LYMPHOCYTES % (AUTO) 24.2 % (21-51); MEAN CORPUSCULAR HEMOGLOBIN 28.6 PG (27.0-31.0); MEAN CORPUSCULAR HGB CONC 32.2 g/dL (33.0-36.5); MEAN CORPUSCULAR VOLUME 88.7 FL (78-98); MONOCYTES # (AUTO) 0.7 X10'3 (0-0.9); MONOCYTES % (AUTO) 5.1 % (2-12); NEUTROPHILS # (AUTO) 8.8 X10'3 (1.8-7.7); NEUTROPHILS % (AUTO) 67.8 % (42-75); PLATELET COUNT 396 X10'3 (140-440); RED BLOOD COUNT 4.82 X10'6 (4.70-6.10); RED CELL DISTRIBUTION WIDTH 15.5 % (11.5-14.5); WHITE BLOOD COUNT 12.9 X10'3 (4.5-11.0)
[2023-05-07 22:44] LABS: ALANINE AMINOTRANSFERASE 100 U/L (12-78); ALBUMIN/GLOBULIN RATIO 0.9 (1.1-1.5); ALKALINE PHOSPHATASE 92 IU/L (46-116); ANION GAP 12 (8-16); ASPARTATE AMINO TRANSFERASE 55 U/L (10-37); BILIRUBIN,TOTAL 0.7 MG/DL (0.1-1.0); BLOOD UREA NITROGEN 31 MG/DL (7-18); BUN/CREATININE RATIO 20.1 (10.0-20.0); CHLORIDE 103 MMOL/L (99-107); CREATININE 1.54 MG/DL (0.60-1.10); GLUCOSE 107 MG/DL (70-104); POTASSIUM 4.4 MMOL/L (3.5-5.1); SODIUM 137 MMOL/L (135-145); TOTAL CARBON DIOXIDE 22.5 MMOL/L (24-32); TOTAL PROTEIN 6.5 G/DL (6.4-8.2); eCRCL 57 ML/MIN; eGFR 48 ML/MIN
[2023-05-07] MEDS ORDERED: normal saline 500ml IV soln 500 ML IV ONE (22:50)
[2023-05-07 22:57] LABS: PRO BRAIN NATRIURETIC PEPTIDE 25351 PG/ML (0-125)
[2023-05-07] MEDS ORDERED: LIDOcaine Viscous 15ml cup MM PRN (23:15)
[2023-05-07] MEDS ORDERED: mag hydrox/Alum hydrox/simeth 30ml oral suspension PO ONE (23:15)
[2023-05-07] MEDS ORDERED: furosemide 40mg/4ml inj IV ONE (23:20)
[2023-05-08] VITALS (8 sets, daily range): BP systolic 96–122; BP diastolic 68–96; PULSE 72–116; RESP 15–25; TEMP 97.5–98.4; O2SAT 92–99
[2023-05-08] LABS: LIPASE 33 U/L (16-77)
[2023-05-08] MEDS ORDERED: magnesium Cl slow-release 64mg tablet PO PRN (00:50)
[2023-05-08] MEDS ORDERED: magnesium 2GM in 50ml NS 50 ML IV PRN (00:50)
[2023-05-08] MEDS ORDERED: magnesium 4gm in 100ml NS 100 ML IV PRN (00:50)
[2023-05-08] MEDS ORDERED: mag hydrox/Alum hydrox/simeth 30ml oral suspension PO PRN (00:50)
[2023-05-08] MEDS ORDERED: magnesium hydroxide 30ml (MOM) UD suspension PO PRN (00:50)
[2023-05-08] MEDS ORDERED: potassium Cl 40MEQ/1/2NS 520ml 520 ML IV PRN (00:50)
[2023-05-08] MEDS ORDERED: potassium Cl 20 mEq SR tablet PO PRN ×2 (00:50)
[2023-05-08] MEDS ORDERED: acetaminophen 325mg tablet PO PRN (00:50)
[2023-05-08] MEDS ORDERED: ondansetron/PF 4mg/2ml inj IV PRN (00:50)
[2023-05-08 01:19] LABS: BILIRUBIN,URINE NEGATIVE (Neg); CLARITY,URINE CLEAR (Clear); COLOR,URINE YELLOW (Yellow); GLUCOSE, URINE NEGATIVE (Neg); KETONES,URINE NEGATIVE (Neg); LEUKOCYTE ESTERASE ,URINE NEGATIVE (Neg); NITRITES, URINE NEGATIVE (Neg); OCCULT BLOOD,URINE NEGATIVE (Neg); PH,URINE 5.5 (4.8-8.0); PROTEIN,URINE TRACE mg/dl (Neg); UROBILINOGEN,URINE 0.2 E.U/dL (0.2-1.0)
[2023-05-08 01:26] LABS: UA COLLECTION TYPE NON-SPECIFIED
[2023-05-08 01:52] LABS: WBC,URINE 0-4 /HPF (0-4)
[2023-05-08 01:53] LABS: BACTERIA,URINE NONE SEEN /HPF (Neg); MUCUS STRANDS NONE SEEN /LPF (Neg); RBC,URINE 0-2 /HPF (0-2); SQUAMOUS EPITHELIAL CELL,UR FEW /LPF (FEW)
--- NOTE | 2023-05-08 03:25 | NUR ---
I was present and agree with admission and physical assessment by Melissa GAMBOA, Bry DUMONT.
[2023-05-08] MEDS ORDERED: LORazepam 2 mg/ml vial IM ONE (04:40)
[2023-05-08] MEDS ORDERED: LORazepam 2 mg/ml vial IV ONE (04:50)
--- NOTE | 2023-05-08 06:57 | NUR ---
Patient in room PCU 3018. I have received report from BEE DAIGLE, and had the opportunity to ask questions and assume patient care.
[2023-05-08] MEDS ORDERED: furosemide 20MG tablet PO SCH (08:00)
[2023-05-08] MEDS: K and/or MAG REPLACEMENT MC SCH ×2 (08:00→20:00)
[2023-05-08] MEDS ORDERED: losartan 50mg tablet PO SCH (08:35)
[2023-05-08] MEDS: docusate sod 100mg capsule PO SCH ×2 (09:07→20:00)
[2023-05-08] MEDS: carvedilol 6.25mg tablet PO SCH ×2 (09:07→19:24)
[2023-05-08] MEDS: heparin, porcine 5000 units/ml vial SQ SCH ×2 (09:08→19:24)
[2023-05-08 10:27] LABS: POTASSIUM 4.1 MMOL/L (3.5-5.1)
[2023-05-08] MEDS: HYDROcodone/acetaminophen 5mg/325mg tablet PO PRN ×2 (11:27→19:24)
--- NOTE | 2023-05-08 18:16 | NUR ---
Problems reprioritized. Patient report given, questions answered & plan of care reviewed with BEE HERNÁNDEZ.
[2023-05-08] MEDS: furosemide 40mg/4ml inj IV SCH (20:09)
[2023-05-08 22:05] LABS: URINE AMPHETAMINE SCREEN NEGATIVE (Neg); URINE BARBITUATE SCREEN NEGATIVE (Neg); URINE BENZODIAZEPINES SCREEN NEGATIVE (Neg); URINE CANNABINOID SCREEN NEGATIVE (Neg); URINE COCAINE SCREEN NEGATIVE (Neg); URINE METHADONE SCREEN NEGATIVE (Neg); URINE OPIATE SCREEN NEGATIVE (Neg); URINE PHENCYCLIDINE SCREEN NEGATIVE (Neg)
[2023-05-09] VITALS (7 sets, daily range): BP systolic 101–119; BP diastolic 69–94; PULSE 77–96; RESP 14–22; TEMP 97.1–98.3; O2SAT 94–99
--- NOTE | 2023-05-09 06:30 | NUR ---
Patient in room PCU 3018. I have received report from Fahad GAMBOA and had the opportunity to ask questions and assume patient care.
[2023-05-09 06:37] LABS: BASOPHILS # (AUTO) 0.2 X10'3 (0-0.2); BASOPHILS % (AUTO) 1.9 % (0-1); EOSINOPHILS # (AUTO) 0.3 X10'3 (0-0.9); EOSINOPHILS % (AUTO) 3.4 % (0-6); HEMOGLOBIN 13.1 g/dl (14.0-17.9); LYMPHOCYTES # (AUTO) 2.9 X10'3 (1.1-4.8); MONOCYTES # (AUTO) 0.6 X10'3 (0-0.9)
[2023-05-09 06:40] LABS: HEMATOCRIT 39.9 % (42.0-52.0); LYMPHOCYTES % (AUTO) 30.1 % (21-51); MEAN CORPUSCULAR HEMOGLOBIN 28.8 PG (27.0-31.0); MEAN CORPUSCULAR HGB CONC 32.9 g/dL (33.0-36.5); MEAN CORPUSCULAR VOLUME 87.4 FL (78-98); MEAN PLATELET VOLUME 8.5 FL (7.4-10.4); NEUTROPHILS # (AUTO) 5.7 X10'3 (1.8-7.7); NEUTROPHILS % (AUTO) 58.6 % (42-75); PLATELET COUNT 367 X10'3 (140-440); RED BLOOD COUNT 4.56 X10'6 (4.70-6.10); RED CELL DISTRIBUTION WIDTH 15.2 % (11.5-14.5); WHITE BLOOD COUNT 9.7 X10'3 (4.5-11.0)
[2023-05-09 06:46] LABS: ALANINE AMINOTRANSFERASE 147 U/L (12-78); ALBUMIN 2.5 G/DL (3.4-5.0); ALBUMIN/GLOBULIN RATIO 0.7 (1.1-1.5); ALKALINE PHOSPHATASE 89 IU/L (46-116); ANION GAP 6 (8-16); ASPARTATE AMINO TRANSFERASE 82 U/L (10-37); BILIRUBIN,TOTAL 0.5 MG/DL (0.1-1.0); BLOOD UREA NITROGEN 47 MG/DL (7-18); BUN/CREATININE RATIO 28.3 (10.0-20.0); CALCIUM 8.5 MG/DL (8.5-10.1); CHLORIDE 101 MMOL/L (99-107); CREATININE 1.66 MG/DL (0.60-1.10); GLUCOSE 120 MG/DL (70-104); MAGNESIUM 1.8 MG/DL (1.5-2.4); POTASSIUM 3.9 MMOL/L (3.5-5.1); SODIUM 135 MMOL/L (135-145); TOTAL PROTEIN 5.9 G/DL (6.4-8.2); eCRCL 53 ML/MIN; eGFR 44 ML/MIN
[2023-05-09] MEDS: furosemide 40mg/4ml inj IV SCH ×2 (07:22→21:43)
[2023-05-09] MEDS: K and/or MAG REPLACEMENT MC SCH ×2 (08:00→20:00)
[2023-05-09] MEDS: EMPAGLIFLOZIN 10 MG TABLET PO SCH (08:39)
[2023-05-09] MEDS: docusate sod 100mg capsule PO SCH ×2 (08:40→19:35)
[2023-05-09] MEDS: losartan 25mg tablet PO SCH (08:40)
[2023-05-09] MEDS: carvedilol 6.25mg tablet PO SCH ×2 (08:40→19:32)
[2023-05-09] MEDS: aspirin 325mg tablet, delayed-release (Ecotrin) PO SCH (08:40)
[2023-05-09] MEDS: spironolactone 25 MG tablet PO SCH (08:41)
[2023-05-09] MEDS: heparin, porcine 5000 units/ml vial SQ SCH ×2 (08:41→19:32)
[2023-05-09] MEDS: HYDROcodone/acetaminophen 5mg/325mg tablet PO PRN ×2 (09:32→21:55)
--- NOTE | 2023-05-09 11:39 | NUR ---
SUPERVISOR CARTON AND CAN SUPPLY assessment reviewed, agree with findings
--- NOTE | 2023-05-09 18:19 | NUR ---
Problems reprioritized. Patient report given, questions answered & plan of care reviewed with Fahad GAMBOA.
--- NOTE | 2023-05-09 21:49 | NUR ---
RN nurse gave pt IV lasix not the FILTER PRESS TENDER HEAD, RN accidentally charted under FILTER PRESS TENDER HEAD log in.
--- NOTE | 2023-05-10 06:34 | NUR ---
Patient in room PCU 3018. I have received report from Fahad GAMBOA and had the opportunity to ask questions and assume patient care.
[2023-05-10 07:00] VITALS: BP 96/76; PULSE 81; RESP 18; TEMP 98; O2SAT 99
[2023-05-10] MEDS: K and/or MAG REPLACEMENT MC SCH (08:00)
[2023-05-10] MEDS: furosemide 40mg/4ml inj IV SCH (08:00)
[2023-05-10] MEDS: losartan 25mg tablet PO SCH (08:00)
[2023-05-10] MEDS: carvedilol 6.25mg tablet PO SCH (08:00)
[2023-05-10] MEDS: spironolactone 25 MG tablet PO SCH (08:30)
[2023-05-10 08:52] LABS: BASOPHILS # (AUTO) 0.2 X10'3 (0-0.2); BASOPHILS % (AUTO) 1.9 % (0-1); EOSINOPHILS # (AUTO) 0.4 X10'3 (0-0.9); EOSINOPHILS % (AUTO) 4.1 % (0-6); HEMATOCRIT 42.5 % (42.0-52.0); HEMOGLOBIN 13.7 g/dl (14.0-17.9); LYMPHOCYTES # (AUTO) 2.1 X10'3 (1.1-4.8); LYMPHOCYTES % (AUTO) 21.4 % (21-51); MEAN CORPUSCULAR HEMOGLOBIN 28.3 PG (27.0-31.0); MEAN CORPUSCULAR HGB CONC 32.3 g/dL (33.0-36.5); MEAN CORPUSCULAR VOLUME 87.5 FL (78-98); MEAN PLATELET VOLUME 8.9 FL (7.4-10.4); MONOCYTES # (AUTO) 0.9 X10'3 (0-0.9); MONOCYTES % (AUTO) 8.8 % (2-12); NEUTROPHILS # (AUTO) 6.4 X10'3 (1.8-7.7); NEUTROPHILS % (AUTO) 63.8 % (42-75); PLATELET COUNT 418 X10'3 (140-440); RED BLOOD COUNT 4.86 X10'6 (4.70-6.10); RED CELL DISTRIBUTION WIDTH 15.7 % (11.5-14.5)
[2023-05-10] MEDS: docusate sod 100mg capsule PO SCH (08:52)
[2023-05-10] MEDS: aspirin 325mg tablet, delayed-release (Ecotrin) PO SCH (08:52)
[2023-05-10] MEDS: EMPAGLIFLOZIN 10 MG TABLET PO SCH (08:52)
[2023-05-10] MEDS: heparin, porcine 5000 units/ml vial SQ SCH (08:53)
[2023-05-10 09:35] LABS: ALANINE AMINOTRANSFERASE 124 U/L (12-78); ALBUMIN 2.6 G/DL (3.4-5.0); ALBUMIN/GLOBULIN RATIO 0.7 (1.1-1.5); ALKALINE PHOSPHATASE 87 IU/L (46-116); ANION GAP 6 (8-16); ASPARTATE AMINO TRANSFERASE 54 U/L (10-37); BILIRUBIN,TOTAL 0.5 MG/DL (0.1-1.0); BLOOD UREA NITROGEN 46 MG/DL (7-18); CALCIUM 9.1 MG/DL (8.5-10.1); CHLORIDE 101 MMOL/L (99-107); CREATININE 1.64 MG/DL (0.60-1.10); SODIUM 139 MMOL/L (135-145); TOTAL CARBON DIOXIDE 31.9 MMOL/L (24-32); TOTAL PROTEIN 6.3 G/DL (6.4-8.2); eCRCL 54 ML/MIN; eGFR 45 ML/MIN
[2023-05-10 09:42] LABS: GLUCOSE 40 MG/DL (70-104)
--- NOTE | 2023-05-10 10:18 | NUR ---
PAGER ID: [phone] MESSAGE: [id number] Aman Patient had a critical glucose on lab draw. did a BG check was 140 FYI. Thank you Lizzette GAMBOA [phone]
--- NOTE | 2023-05-10 10:23 | NUR ---
Spoke with Dr Carvajal patient will be discharging and no new orders noted at this time.
[2023-05-10 11:00] VITALS: BP 110/82; PULSE 88; RESP 16; TEMP 97.7; O2SAT 98
[2023-05-10] MEDS ORDERED: ASPI-1071 PO (12:14)
[2023-05-10] MEDS ORDERED: EMPA10TA PO (12:14)
[2023-05-10] MEDS ORDERED: LOSA25TA41 PO (12:14)
[2023-05-10] MEDS ORDERED: SPIR25TA PO (12:14)
[2023-05-10] MEDS ORDERED: CARV6.253 PO (12:14)
--- NOTE | 2023-05-10 15:22 | NUR ---
Patient discharged home with all belongings and discharge instructions. IV removed and tele monitor removed and returned to inbound telemarketer. Patient stormed off unit because social media senior associate was attempting to help him find a place to go.
== END 2023-05-10 15:24 | disposition home or self-care (01) | DRG 194 ==
LOC: ER 21:30 → ED HOLD 05-08 00:50 → PCU 3S 05-08 02:45
PROVIDERS: ADMIT Internal Medicine; ATTEND Family Medicine
DX: I50.23 Acute on chronic systolic (congestive) heart failure (principal); N17.0 Acute kidney failure with tubular necrosis; R65.11 Systemic inflammatory response syndrome (SIRS) of non-infectious origin with acute organ dysfunction; J44.9 Chronic obstructive pulmonary disease, unspecified; F41.9 Anxiety disorder, unspecified; N18.9 Chronic kidney disease, unspecified; R00.0 Tachycardia, unspecified; I08.1 Rheumatic disorders of both mitral and tricuspid valves; Z82.3 Family history of stroke; Z82.49 Family history of ischemic heart disease and other diseases of the circulatory system; Z91.199 Patient's noncompliance with other medical treatment and regimen due to unspecified reason; Z87.891 Personal history of nicotine dependence; Z79.899 Other long term (current) drug therapy; Z88.0 Allergy status to penicillin; Z59.00 Homelessness unspecified; Z56.0 Unemployment, unspecified; Z79.82 Long term (current) use of aspirin
CPT/HCPCS: 36415; 71045; 74176; 80053; 80305; 81001; 82948; 83690; 83735; 83880; 84132; 84484; 85025; 87081; 99285; A4615; G0378; J1644; J1940; J2060

== ENCOUNTER 2023-05-14 00:36 | Emergency (ER) | payer MEDICAID ==
[~2023-05-14] VITALS: Ht 175.3 cm; Wt 72.7 kg
[~2023-05-14 00:36] MED LIST changes: -ASPI-103 PO; +ASPI-1071 PO; +CARV6.253 PO; +EMPA10TA PO; +LOSA25TA41 PO; +SPIR25TA PO
[2023-05-14 00:47] VITALS: TEMP 98.2
[2023-05-14 01:19] LABS: BASOPHILS # (AUTO) 0.3 X10'3 (0-0.2); BASOPHILS % (AUTO) 2.2 % (0-1); MEAN CORPUSCULAR HGB CONC 31.8 g/dL (33.0-36.5); MEAN PLATELET VOLUME 7.6 FL (7.4-10.4); MONOCYTES # (AUTO) 0.9 X10'3 (0-0.9); MONOCYTES % (AUTO) 6.7 % (2-12); RED BLOOD COUNT 4.61 X10'6 (4.70-6.10)
[2023-05-14 01:20] LABS: EOSINOPHILS # (AUTO) 0.5 X10'3 (0-0.9); EOSINOPHILS % (AUTO) 3.8 % (0-6); HEMATOCRIT 40.7 % (42.0-52.0); HEMOGLOBIN 12.9 g/dl (14.0-17.9); LYMPHOCYTES # (AUTO) 3.4 X10'3 (1.1-4.8); LYMPHOCYTES % (AUTO) 26.5 % (21-51); MEAN CORPUSCULAR VOLUME 88.2 FL (78-98); NEUTROPHILS # (AUTO) 7.8 X10'3 (1.8-7.7); NEUTROPHILS % (AUTO) 60.8 % (42-75); PLATELET COUNT 399 X10'3 (140-440); WHITE BLOOD COUNT 12.8 X10'3 (4.5-11.0)
[2023-05-14 01:38] LABS: ALANINE AMINOTRANSFERASE 116 U/L (12-78); ALBUMIN 2.9 G/DL (3.4-5.0); ALBUMIN/GLOBULIN RATIO 0.9 (1.1-1.5); ALKALINE PHOSPHATASE 88 IU/L (46-116); ANION GAP 7 (8-16); ASPARTATE AMINO TRANSFERASE 61 U/L (10-37); BILIRUBIN,TOTAL 0.3 MG/DL (0.1-1.0); BLOOD UREA NITROGEN 25 MG/DL (7-18); BUN/CREATININE RATIO 16.7 (10.0-20.0); CALCIUM 8.5 MG/DL (8.5-10.1); CHLORIDE 105 MMOL/L (99-107); GLUCOSE 128 MG/DL (70-104); POTASSIUM 4.9 MMOL/L (3.5-5.1); SODIUM 138 MMOL/L (135-145); TOTAL CARBON DIOXIDE 25.7 MMOL/L (24-32); TOTAL PROTEIN 6.2 G/DL (6.4-8.2); eCRCL 59 ML/MIN; eGFR 50 ML/MIN
[2023-05-14 01:46] LABS: LIPASE 76 U/L (16-77); PRO BRAIN NATRIURETIC PEPTIDE 15655 PG/ML (0-125)
[2023-05-14 02:00] VITALS: BP 144/84; PULSE 99; RESP 17; O2SAT 96
--- NOTE | 2023-05-14 03:00 | NUR ---
PT AMBULATING IN AND OUT OF LOBBY TO GO SMOKE. PT WALKING WITH EVEN, STEADY GAIT. PT ALSO LAYING ON GROUND IN LOBBY OFF AND ON. WELFARE SUPERVISOR AWARE. PT UPDATED WITH NO BEDS AVAILABLE AT THIS TIME. PT ADVISED TO GET OFF OF THE GROUND, PT REFUSED AND CONTINUED TO LAY IN LOBBY.
--- NOTE | 2023-05-14 05:03 | NUR ---
PT BACK IN LOBBY WITH VISITOR.
--- NOTE | 2023-05-14 05:56 | NUR ---
PT SEEN BY SECURITY IN LOBBY CARRYING BELONGINGS OUTSIDE, PLACING THEM IN CAR, GETTING IN CAR AND DRIVING AWAY.
== END 2023-05-14 06:07 | disposition left against medical advice (07) ==
LOC: ER 00:36
DX: R10.9 Unspecified abdominal pain (principal); Z53.21 Procedure and treatment not carried out due to patient leaving prior to being seen by health care provider
CPT/HCPCS: 71045; 80053; 83690; 83880; 84484; 85025; 93005; 99281

== ENCOUNTER 2023-05-15 13:17 | Emergency (ER) | payer MEDICAID ==
[~2023-05-15] VITALS: Ht 165.1 cm; Wt 74.0 kg
[2023-05-15 13:59] LABS: BASOPHILS # (AUTO) 0.4 X10'3 (0-0.2); EOSINOPHILS # (AUTO) 0.2 X10'3 (0-0.9); HEMOGLOBIN 12.5 g/dl (14.0-17.9); MONOCYTES # (AUTO) 1.1 X10'3 (0-0.9); WHITE BLOOD COUNT 11.5 X10'3 (4.5-11.0)
[2023-05-15 14:01] LABS: BASOPHILS % (AUTO) 3.2 % (0-1); EOSINOPHILS % (AUTO) 1.6 % (0-6); LYMPHOCYTES # (AUTO) 2.7 X10'3 (1.1-4.8); LYMPHOCYTES % (AUTO) 23.5 % (21-51); MEAN CORPUSCULAR HEMOGLOBIN 27.4 PG (27.0-31.0); MEAN CORPUSCULAR HGB CONC 31.4 g/dL (33.0-36.5); MEAN CORPUSCULAR VOLUME 87.3 FL (78-98); MEAN PLATELET VOLUME 8.2 FL (7.4-10.4); MONOCYTES % (AUTO) 9.3 % (2-12); NEUTROPHILS # (AUTO) 7.2 X10'3 (1.8-7.7); NEUTROPHILS % (AUTO) 62.4 % (42-75); PLATELET COUNT 392 X10'3 (140-440); RED BLOOD COUNT 4.58 X10'6 (4.70-6.10); RED CELL DISTRIBUTION WIDTH 15.7 % (11.5-14.5)
[2023-05-15 14:17] LABS: ALANINE AMINOTRANSFERASE 100 U/L (12-78); ALBUMIN 2.8 G/DL (3.4-5.0); ALBUMIN/GLOBULIN RATIO 0.9 (1.1-1.5); ALKALINE PHOSPHATASE 74 IU/L (46-116); ANION GAP 11 (8-16); ASPARTATE AMINO TRANSFERASE 44 U/L (10-37); BILIRUBIN,TOTAL 0.7 MG/DL (0.1-1.0); BLOOD UREA NITROGEN 29 MG/DL (7-18); BUN/CREATININE RATIO 21.5 (10.0-20.0); CALCIUM 8.8 MG/DL (8.5-10.1); CHLORIDE 105 MMOL/L (99-107); CREATININE 1.35 MG/DL (0.60-1.10); GLUCOSE 126 MG/DL (70-104); POTASSIUM 4.3 MMOL/L (3.5-5.1); SODIUM 137 MMOL/L (135-145); TOTAL CARBON DIOXIDE 21.3 MMOL/L (24-32); eCRCL 57 ML/MIN; eGFR 56 ML/MIN
[2023-05-15 14:26] LABS: MAGNESIUM 1.9 MG/DL (1.5-2.4); PRO BRAIN NATRIURETIC PEPTIDE 23859 PG/ML (0-125)
[2023-05-15 14:35] LABS: HYPOCHROMASIA 1+; PLATELET ESTIMATE NORMAL; TOTAL CELLS COUNTED 100
[2023-05-15 16:18] VITALS: BP 132/106; PULSE 110; RESP 18; TEMP 97.7; O2SAT 100
== END 2023-05-15 16:23 | disposition home or self-care (01) ==
LOC: ER 13:17
DX: R07.89 Other chest pain (principal); I50.9 Heart failure, unspecified; J44.9 Chronic obstructive pulmonary disease, unspecified; F15.90 Other stimulant use, unspecified, uncomplicated; Z88.0 Allergy status to penicillin; Z79.82 Long term (current) use of aspirin; Z79.899 Other long term (current) drug therapy
CPT/HCPCS: 36415; 71045; 80053; 83735; 83880; 84484; 85007; 85025; 93005; 99285

== ENCOUNTER 2023-05-31 15:00 | Inpatient (IN) | payer MEDICAID ==
[~2023-05-31] VITALS: Ht 175.3 cm; Wt 74.2 kg
[2023-05-31 17:21] LABS: BASOPHILS # (AUTO) 0.2 X10'3 (0-0.2); BASOPHILS % (AUTO) 0.9 % (0-1); EOSINOPHILS % (AUTO) 0.2 % (0-6); HEMATOCRIT 42.1 % (42.0-52.0); HEMOGLOBIN 13.3 g/dl (14.0-17.9); LYMPHOCYTES # (AUTO) 2.2 X10'3 (1.1-4.8); LYMPHOCYTES % (AUTO) 12.1 % (21-51); MEAN CORPUSCULAR HEMOGLOBIN 27.6 PG (27.0-31.0); MEAN CORPUSCULAR HGB CONC 31.6 g/dL (33.0-36.5); MEAN CORPUSCULAR VOLUME 87.2 FL (78-98); MEAN PLATELET VOLUME 8.4 FL (7.4-10.4); MONOCYTES # (AUTO) 1.1 X10'3 (0-0.9); MONOCYTES % (AUTO) 6.3 % (2-12); NEUTROPHILS # (AUTO) 14.5 X10'3 (1.8-7.7); NEUTROPHILS % (AUTO) 80.5 % (42-75); PLATELET COUNT 402 X10'3 (140-440); RED BLOOD COUNT 4.82 X10'6 (4.70-6.10); RED CELL DISTRIBUTION WIDTH 16.6 % (11.5-14.5)
[2023-05-31 17:39] LABS: ALANINE AMINOTRANSFERASE 73 U/L (12-78); ALBUMIN 3.4 G/DL (3.4-5.0); ALBUMIN/GLOBULIN RATIO 0.8 (1.1-1.5); ALKALINE PHOSPHATASE 68 IU/L (46-116); ANION GAP 10 (8-16); ASPARTATE AMINO TRANSFERASE 35 U/L (10-37); BILIRUBIN,TOTAL 1.8 MG/DL (0.1-1.0); BLOOD UREA NITROGEN 24 MG/DL (7-18); CALCIUM 9.2 MG/DL (8.5-10.1); CHLORIDE 99 MMOL/L (99-107); GLUCOSE 118 MG/DL (70-104); LIPASE 28 U/L (16-77); SODIUM 132 MMOL/L (135-145); TOTAL CARBON DIOXIDE 23.5 MMOL/L (24-32); TOTAL PROTEIN 7.5 G/DL (6.4-8.2); eCRCL 59 ML/MIN; eGFR 50 ML/MIN
[2023-05-31] MEDS ORDERED: iohexol 300mg/ml 100ml inj. ONE (22:57)
[2023-06-01] MEDS ORDERED: CefTRIAXone/D5W-Rocephin 1gm 50 ML IV ONE (00:15)
[2023-06-01] MEDS ORDERED: levoFLOXACIN-Levaquin 500mg/D5 100 ML IV ONE (00:15)
[2023-06-01] MEDS ORDERED: potassium Cl 20 mEq SR tablet PO PRN ×2 (00:50)
[2023-06-01] MEDS ORDERED: magnesium 2GM in 50ml NS 50 ML IV PRN (00:50)
[2023-06-01] MEDS ORDERED: magnesium Cl slow-release 64mg tablet PO PRN (00:50)
[2023-06-01] MEDS ORDERED: potassium Cl 40MEQ/1/2NS 520ml 520 ML IV PRN (00:50)
[2023-06-01] MEDS ORDERED: magnesium 4gm in 100ml NS 100 ML IV PRN (00:50)
[2023-06-01] MEDS ORDERED: normal saline 1000ml 1,000 ML IV ONE ×2 (00:50→02:25)
[2023-06-01] MEDS ORDERED: acetaminophen 325mg tablet PO ONE (00:50)
[2023-06-01] MEDS: normal saline 1000ml 1,000 ML IV SCH ×3 (01:13→20:04)
[2023-06-01] MEDS: ondansetron/PF 4mg/2ml inj IV PRN (01:30)
[2023-06-01] MEDS: morphine 2 MG/ML inj. syringe IV PRN ×6 (01:34→22:03)
[2023-06-01 01:35] LABS: BILIRUBIN,URINE NEGATIVE (Neg); CLARITY,URINE CLEAR (Clear); COLOR,URINE YELLOW (Yellow); GLUCOSE, URINE NEGATIVE (Neg); KETONES,URINE NEGATIVE (Neg); LEUKOCYTE ESTERASE ,URINE NEGATIVE (Neg); NITRITES, URINE NEGATIVE (Neg); OCCULT BLOOD,URINE NEGATIVE (Neg); PH,URINE 5.5 (4.8-8.0); PROTEIN,URINE 30 mg/dl (Neg); UROBILINOGEN,URINE 0.2 E.U/dL (0.2-1.0)
[2023-06-01 01:45] LABS: UA COLLECTION TYPE VOIDED
[2023-06-01 01:47] LABS: BACTERIA,URINE FEW /HPF (Neg); RBC,URINE 0-2 /HPF (0-2); SQUAMOUS EPITHELIAL CELL,UR NONE SEEN /LPF (FEW); WBC,URINE 0-4 /HPF (0-4)
[2023-06-01 01:48] LABS: AMORPHOUS URATES 1+; FINE GRANULAR CAST 0-3 /LPF (NEGATIVE); MUCUS STRANDS NONE SEEN /LPF (Neg); SPERM FEW /HPF (NEGATIVE); TRANSITIONAL EPI CELLS,URINE FEW /HPF
[2023-06-01 04:14] LABS: MAGNESIUM 1.8 MG/DL (1.5-2.4); POTASSIUM 4.5 MMOL/L (3.5-5.1)
[2023-06-01] MEDS: K and/or MAG REPLACEMENT MC SCH ×2 (08:00→20:59)
[2023-06-01 16:18] VITALS: RESP 20; O2SAT 95
[2023-06-01 16:37] VITALS: BP 119/97; PULSE 114; RESP 25; TEMP 98.1; O2SAT 95
[2023-06-01 18:00] VITALS: BP 98/74; PULSE 93; RESP 16; TEMP 98.4; O2SAT 93
[2023-06-01 19:00] VITALS: RESP 20; O2SAT 93
[2023-06-01] MEDS: polyethylene glycol 3350 17gm powd pack PO SCH (20:03)
[2023-06-01] MEDS: metroNIDAZOLE-Flagyl 500mg/NS 100 ML IV SCH (20:54)
[2023-06-02] VITALS (8 sets, daily range): BP systolic 103–123; BP diastolic 79–94; PULSE 89–108; RESP 12–20; TEMP 97.4–98.5; O2SAT 91–99
[2023-06-02] MEDS: levoFLOXACIN-Levaquin 500mg/D5 100 ML IV SCH (00:18)
[2023-06-02] MEDS: morphine 2 MG/ML inj. syringe IV PRN (04:27)
[2023-06-02] MEDS: ondansetron/PF 4mg/2ml inj IV PRN ×3 (04:35→19:33)
[2023-06-02] MEDS: normal saline 1000ml 1,000 ML IV SCH ×2 (06:50→10:50)
[2023-06-02] MEDS: metroNIDAZOLE-Flagyl 500mg/NS 100 ML IV SCH ×2 (07:47→19:33)
[2023-06-02] MEDS: K and/or MAG REPLACEMENT MC SCH ×2 (08:00→20:00)
[2023-06-02 08:39] LABS: BASOPHILS # (AUTO) 0.1 X10'3 (0-0.2); EOSINOPHILS % (AUTO) 0.3 % (0-6); HEMATOCRIT 37.6 % (42.0-52.0); LYMPHOCYTES # (AUTO) 1.2 X10'3 (1.1-4.8); LYMPHOCYTES % (AUTO) 8.5 % (21-51); MEAN CORPUSCULAR HEMOGLOBIN 27.5 PG (27.0-31.0); MEAN CORPUSCULAR HGB CONC 31.9 g/dL (33.0-36.5); MEAN CORPUSCULAR VOLUME 86.2 FL (78-98); MONOCYTES # (AUTO) 1.3 X10'3 (0-0.9); MONOCYTES % (AUTO) 9.2 % (2-12); NEUTROPHILS # (AUTO) 11.1 X10'3 (1.8-7.7); PLATELET COUNT 332 X10'3 (140-440); RED BLOOD COUNT 4.36 X10'6 (4.70-6.10); RED CELL DISTRIBUTION WIDTH 16.5 % (11.5-14.5); WHITE BLOOD COUNT 13.6 X10'3 (4.5-11.0)
[2023-06-02 09:29] LABS: ALBUMIN 2.7 G/DL (3.4-5.0); ANION GAP 11 (8-16); BLOOD UREA NITROGEN 22 MG/DL (7-18); BUN/CREATININE RATIO 18.8 (10.0-20.0); CALCIUM 8.6 MG/DL (8.5-10.1); CHLORIDE 99 MMOL/L (99-107); CREATININE 1.17 MG/DL (0.60-1.10); GLUCOSE 102 MG/DL (70-104); MAGNESIUM 1.8 MG/DL (1.5-2.4); POTASSIUM 5.2 MMOL/L (3.5-5.1); SODIUM 128 MMOL/L (135-145); TOTAL CARBON DIOXIDE 17.9 MMOL/L (24-32); eCRCL 76 ML/MIN; eGFR 66 ML/MIN
[2023-06-02] MEDS ORDERED: proCHLORperazine 10 MG/2 ml inj IV PRN (11:20)
[2023-06-02] MEDS ORDERED: HYDROmorphone inj. 0.5 MG/0.5 ML DISP.SYRIN IV PRN (11:20)
[2023-06-02] MEDS ORDERED: magnesium hydroxide 30ml (MOM) UD suspension PO ONE (11:25)
[2023-06-02] MEDS: HYDROmorphone inj. 0.5 MG/0.5 ML DISP.SYRIN IV PRN (19:33)
[2023-06-02] MEDS: sodium bicarbonate (8.4%) inj. 100 MEQ in dextrose 5%-water 1,000 ML IV SCH (20:46)
[2023-06-02] MEDS: polyethylene glycol 3350 17gm powd pack PO SCH (22:55)
[2023-06-03] MEDS: HYDROmorphone inj. 0.5 MG/0.5 ML DISP.SYRIN IV PRN ×2 (00:30→07:24)
[2023-06-03] MEDS: levoFLOXACIN-Levaquin 500mg/D5 100 ML IV SCH (01:33)
[2023-06-03 02:00] VITALS: BP 113/77; PULSE 101; RESP 15; TEMP 98.3; O2SAT 94
[2023-06-03 06:58] VITALS: BP 126/83; PULSE 91; RESP 16; TEMP 98.3; O2SAT 100
[2023-06-03 07:00] VITALS: RESP 16; O2SAT 100
[2023-06-03 07:00] LABS: BASOPHILS # (AUTO) 0.1 X10'3 (0-0.2); BASOPHILS % (AUTO) 1.3 % (0-1); EOSINOPHILS # (AUTO) 0.2 X10'3 (0-0.9); EOSINOPHILS % (AUTO) 1.5 % (0-6); HEMATOCRIT 38.1 % (42.0-52.0); HEMOGLOBIN 12.2 g/dl (14.0-17.9); LYMPHOCYTES # (AUTO) 1.4 X10'3 (1.1-4.8); LYMPHOCYTES % (AUTO) 12.9 % (21-51); MEAN CORPUSCULAR HEMOGLOBIN 27.6 PG (27.0-31.0); MEAN CORPUSCULAR HGB CONC 32.2 g/dL (33.0-36.5); MEAN CORPUSCULAR VOLUME 85.7 FL (78-98); MEAN PLATELET VOLUME 8.7 FL (7.4-10.4); MONOCYTES # (AUTO) 1.2 X10'3 (0-0.9); MONOCYTES % (AUTO) 10.8 % (2-12); NEUTROPHILS % (AUTO) 73.5 % (42-75); PLATELET COUNT 325 X10'3 (140-440); RED BLOOD COUNT 4.44 X10'6 (4.70-6.10); RED CELL DISTRIBUTION WIDTH 16.1 % (11.5-14.5); WHITE BLOOD COUNT 10.9 X10'3 (4.5-11.0)
[2023-06-03 07:19] LABS: ANION GAP 11 (8-16); BLOOD UREA NITROGEN 21 MG/DL (7-18); CHLORIDE 99 MMOL/L (99-107); CREATININE 1.31 MG/DL (0.60-1.10); GLUCOSE 120 MG/DL (70-104); POTASSIUM 4.6 MMOL/L (3.5-5.1); SODIUM 131 MMOL/L (135-145); TOTAL CARBON DIOXIDE 21.1 MMOL/L (24-32); eCRCL 67 ML/MIN; eGFR 58 ML/MIN
[2023-06-03 07:20] LABS: ALBUMIN 2.4 G/DL (3.4-5.0); MAGNESIUM 1.8 MG/DL (1.5-2.4)
[2023-06-03] MEDS: metroNIDAZOLE-Flagyl 500mg/NS 100 ML IV SCH (07:24)
[2023-06-03] MEDS: sodium bicarbonate (8.4%) inj. 100 MEQ in dextrose 5%-water 1,000 ML IV SCH (07:34)
[2023-06-03] MEDS: K and/or MAG REPLACEMENT MC SCH (08:00)
[2023-06-03] MEDS ORDERED: METR-159 PO (10:10)
[2023-06-03] MEDS ORDERED: LEVO-65 PO (10:10)
[2023-06-03 11:16] VITALS: BP 129/98; PULSE 90; RESP 16; TEMP 97; O2SAT 100
== END 2023-06-03 11:16 | disposition home or self-care (01) | DRG 721 ==
LOC: ER 15:00 → ED HOLD 06-01 00:49 → PCU 3S 06-01 16:40
PROVIDERS: ADMIT Internal Medicine; ATTEND Internal Medicine
PROC: BW211ZZ Computerized Tomography (CT Scan) of Abdomen and Pelvis using Low Osmolar Contrast (ICD-10-PCS; principal; 2023-06-01)
DX: T81.43XA Infection following a procedure, organ and space surgical site, initial encounter (principal); N17.0 Acute kidney failure with tubular necrosis; A41.9 Sepsis, unspecified organism; E87.1 Hypo-osmolality and hyponatremia; K81.9 Cholecystitis, unspecified; J43.8 Other emphysema; I50.22 Chronic systolic (congestive) heart failure; I11.0 Hypertensive heart disease with heart failure; Z60.2 Problems related to living alone; K40.90 Unilateral inguinal hernia, without obstruction or gangrene, not specified as recurrent; T81.44XA Sepsis following a procedure, initial encounter; Y83.8 Other surgical procedures as the cause of abnormal reaction of the patient, or of later complication, without mention of misadventure at the time of the procedure; F15.10 Other stimulant abuse, uncomplicated; Z82.3 Family history of stroke; Z87.891 Personal history of nicotine dependence; Z88.0 Allergy status to penicillin; Z82.49 Family history of ischemic heart disease and other diseases of the circulatory system; Z79.82 Long term (current) use of aspirin; Z79.84 Long term (current) use of oral hypoglycemic drugs; Z59.00 Homelessness unspecified; Z56.0 Unemployment, unspecified; Y92.89 Other specified places as the place of occurrence of the external cause; Z79.899 Other long term (current) drug therapy; Z93.50 Unspecified cystostomy status
CPT/HCPCS: 36415; 71260; 74177; 80048; 80053; 81001; 82948; 83605; 83690; 83735; 84132; 84145; 85025; 87040; 87081; 96365; 99285; A4615; A6258; C1751; J0696; J0780; J1170; J1956; J2270; J2405; J3490; J7030; J7070; Q9967

== ENCOUNTER 2023-06-03 13:59 | Emergency (ER) | payer MEDICAID ==
[~2023-06-03] VITALS: Ht 175.3 cm; Wt 64.0 kg
[~2023-06-03 13:59] MED LIST changes: +LEVO-65 PO; +METR-159 PO
[2023-06-03 14:35] VITALS: BP 140/92; PULSE 110; RESP 20; TEMP 98.2; O2SAT 100
[2023-06-03 15:11] LABS: BASOPHILS # (AUTO) 0.1 X10'3 (0-0.2); EOSINOPHILS # (AUTO) 0.1 X10'3 (0-0.9); EOSINOPHILS % (AUTO) 0.9 % (0-6); HEMATOCRIT 39.1 % (42.0-52.0); HEMOGLOBIN 12.6 g/dl (14.0-17.9); LYMPHOCYTES # (AUTO) 1.1 X10'3 (1.1-4.8); LYMPHOCYTES % (AUTO) 11.9 % (21-51); MEAN CORPUSCULAR HEMOGLOBIN 27.6 PG (27.0-31.0); MEAN CORPUSCULAR HGB CONC 32.1 g/dL (33.0-36.5); MEAN CORPUSCULAR VOLUME 86.1 FL (78-98); MEAN PLATELET VOLUME 8.5 FL (7.4-10.4); MONOCYTES # (AUTO) 0.9 X10'3 (0-0.9); MONOCYTES % (AUTO) 9.6 % (2-12); NEUTROPHILS # (AUTO) 7.4 X10'3 (1.8-7.7); NEUTROPHILS % (AUTO) 76.6 % (42-75); PLATELET COUNT 335 X10'3 (140-440); RED BLOOD COUNT 4.55 X10'6 (4.70-6.10); RED CELL DISTRIBUTION WIDTH 16.6 % (11.5-14.5); WHITE BLOOD COUNT 9.6 X10'3 (4.5-11.0)
[2023-06-03 15:28] LABS: ALANINE AMINOTRANSFERASE 365 U/L (12-78); ALBUMIN 2.4 G/DL (3.4-5.0); ALBUMIN/GLOBULIN RATIO 0.7 (1.1-1.5); ALKALINE PHOSPHATASE 61 IU/L (46-116); ANION GAP 8 (8-16); ASPARTATE AMINO TRANSFERASE 223 U/L (10-37); BILIRUBIN,TOTAL 1.3 MG/DL (0.1-1.0); BLOOD UREA NITROGEN 21 MG/DL (7-18); BUN/CREATININE RATIO 14.2 (10.0-20.0); CALCIUM 8.2 MG/DL (8.5-10.1); CHLORIDE 98 MMOL/L (99-107); CREATININE 1.48 MG/DL (0.60-1.10); GLUCOSE 139 MG/DL (70-104); LIPASE 25 U/L (16-77); MAGNESIUM 1.7 MG/DL (1.5-2.4); POTASSIUM 4.5 MMOL/L (3.5-5.1); SODIUM 131 MMOL/L (135-145); TOTAL CARBON DIOXIDE 24.8 MMOL/L (24-32); TOTAL PROTEIN 5.7 G/DL (6.4-8.2); eCRCL 54 ML/MIN; eGFR 50 ML/MIN
== END 2023-06-03 20:53 | disposition left against medical advice (07) ==
LOC: ER 13:59
DX: I50.9 Heart failure, unspecified (principal); R10.9 Unspecified abdominal pain; J44.9 Chronic obstructive pulmonary disease, unspecified; F15.90 Other stimulant use, unspecified, uncomplicated; F41.9 Anxiety disorder, unspecified; Z98.890 Other specified postprocedural states; Z60.2 Problems related to living alone; Z59.00 Homelessness unspecified; Z56.0 Unemployment, unspecified; Z90.49 Acquired absence of other specified parts of digestive tract; Z88.0 Allergy status to penicillin; Z88.5 Allergy status to narcotic agent; Z79.82 Long term (current) use of aspirin; Z79.899 Other long term (current) drug therapy
CPT/HCPCS: 36415; 80053; 83690; 83735; 85025; 99283

== ENCOUNTER 2023-06-21 01:43 | Emergency (ER) | payer MEDICAID ==
[~2023-06-21] VITALS: Ht 175.3 cm; Wt 64.1 kg
[2023-06-21] MEDS ORDERED: furosemide 20MG tablet PO ONE (02:05)
[2023-06-21] MEDS ORDERED: acetaminophen 325mg tablet PO ONE (02:05)
[2023-06-21] MEDS ORDERED: FURO-150 PO (02:10)
[2023-06-21 02:33] VITALS: BP 105/68; PULSE 79; RESP 16; TEMP 98.8; O2SAT 98
== END 2023-06-21 02:35 | disposition home or self-care (01) ==
LOC: ER 01:44
DX: I50.9 Heart failure, unspecified (principal); R60.0 Localized edema; J44.9 Chronic obstructive pulmonary disease, unspecified; F15.90 Other stimulant use, unspecified, uncomplicated; Z56.0 Unemployment, unspecified; Z59.00 Homelessness unspecified; Z88.5 Allergy status to narcotic agent; Z79.82 Long term (current) use of aspirin; Z79.899 Other long term (current) drug therapy
CPT/HCPCS: 99283

== ENCOUNTER 2023-07-04 03:40 | Inpatient (IN) | payer MEDICAID ==
[~2023-07-04] VITALS: Ht 175.3 cm; Wt 77.3 kg
[~2023-07-04 03:40] MED LIST changes: +FURO-150 PO
[2023-07-04 04:07] LABS: MEAN CORPUSCULAR HEMOGLOBIN 26.3 PG (27.0-31.0)
[2023-07-04 04:10] LABS: BASOPHILS # (AUTO) 0.2 X10'3 (0-0.2); BASOPHILS % (AUTO) 1.4 % (0-1); EOSINOPHILS # (AUTO) 0.1 X10'3 (0-0.9); EOSINOPHILS % (AUTO) 1.1 % (0-6); HEMATOCRIT 32.5 % (42.0-52.0); HEMOGLOBIN 10.4 g/dl (14.0-17.9); LYMPHOCYTES # (AUTO) 1.5 X10'3 (1.1-4.8); LYMPHOCYTES % (AUTO) 12.4 % (21-51); MEAN CORPUSCULAR HGB CONC 31.9 g/dL (33.0-36.5); MEAN CORPUSCULAR VOLUME 82.4 FL (78-98); MEAN PLATELET VOLUME 8.1 FL (7.4-10.4); MONOCYTES # (AUTO) 1.4 X10'3 (0-0.9); NEUTROPHILS # (AUTO) 9.1 X10'3 (1.8-7.7); NEUTROPHILS % (AUTO) 74.1 % (42-75); PLATELET COUNT 376 X10'3 (140-440); RED BLOOD COUNT 3.94 X10'6 (4.70-6.10); WHITE BLOOD COUNT 12.3 X10'3 (4.5-11.0)
[2023-07-04 04:29] LABS: ALANINE AMINOTRANSFERASE 370 U/L (12-78); ALBUMIN 2.6 G/DL (3.4-5.0); ALBUMIN/GLOBULIN RATIO 0.6 (1.1-1.5); ALKALINE PHOSPHATASE 137 IU/L (46-116); ANION GAP 8 (8-16); BILIRUBIN,TOTAL 0.8 MG/DL (0.1-1.0); BLOOD UREA NITROGEN 30 MG/DL (7-18); BUN/CREATININE RATIO 22.1 (10.0-20.0); CALCIUM 8.6 MG/DL (8.5-10.1); CHLORIDE 99 MMOL/L (99-107); CREATININE 1.36 MG/DL (0.60-1.10); GLUCOSE 133 MG/DL (70-104); POTASSIUM 3.8 MMOL/L (3.5-5.1); PRO BRAIN NATRIURETIC PEPTIDE 20287 PG/ML (0-125); SODIUM 137 MMOL/L (135-145); TOTAL CARBON DIOXIDE 30.3 MMOL/L (24-32); TOTAL PROTEIN 7.3 G/DL (6.4-8.2); eCRCL 65 ML/MIN; eGFR 55 ML/MIN
[2023-07-04 04:37] LABS: ASPARTATE AMINO TRANSFERASE 155 U/L (10-37)
[2023-07-04 05:37] LABS: ANISOCYTOSIS 1+; NUCLEATED RED BLOOD CELLS 1 /100WBC (0-0); PLATELET ESTIMATE NORMAL; TOTAL CELLS COUNTED 100
[2023-07-04] MEDS ORDERED: clindamycin 300mg/D5W 50mL 50 ML IV ONE (06:31)
[2023-07-04 06:43] LABS: BILIRUBIN,URINE NEGATIVE (Neg); CLARITY,URINE CLEAR (Clear); COLOR,URINE YELLOW (Yellow); GLUCOSE, URINE 500 mg/dl (Neg); KETONES,URINE NEGATIVE (Neg); LEUKOCYTE ESTERASE ,URINE NEGATIVE (Neg); NITRITES, URINE NEGATIVE (Neg); OCCULT BLOOD,URINE NEGATIVE (Neg); PH,URINE 6.5 (4.8-8.0); PROTEIN,URINE TRACE mg/dl (Neg); UROBILINOGEN,URINE 0.2 E.U/dL (0.2-1.0)
[2023-07-04 06:46] LABS: UA COLLECTION TYPE NON-SPECIFIED
[2023-07-04 06:51] LABS: BACTERIA,URINE NONE SEEN /HPF (Neg); MUCUS STRANDS NONE SEEN /LPF (Neg); RBC,URINE 0-2 /HPF (0-2); SQUAMOUS EPITHELIAL CELL,UR NONE SEEN /LPF (FEW); WBC,URINE 0-4 /HPF (0-4)
[2023-07-04] MEDS ORDERED: magnesium 4gm in 100ml NS 100 ML IV PRN ×2 (09:05→13:50)
[2023-07-04] MEDS ORDERED: potassium Cl 40MEQ/1/2NS 520ml 520 ML IV PRN ×2 (09:05→13:50)
[2023-07-04] MEDS ORDERED: magnesium hydroxide 30ml (MOM) UD suspension PO PRN ×2 (09:05→13:50)
[2023-07-04] MEDS ORDERED: mag hydrox/Alum hydrox/simeth 30ml oral suspension PO PRN ×2 (09:05→13:50)
[2023-07-04] MEDS ORDERED: normal saline 1000ml 1,000 ML IV SCH ×2 (09:05→13:50)
[2023-07-04] MEDS ORDERED: ondansetron/PF 4mg/2ml inj IV PRN ×2 (09:05→13:50)
[2023-07-04] MEDS ORDERED: magnesium Cl slow-release 64mg tablet PO PRN ×2 (09:05→13:50)
[2023-07-04] MEDS ORDERED: HYDROcodone/acetaminophen 5mg/325mg tablet PO PRN ×2 (09:05→13:50)
[2023-07-04] MEDS ORDERED: HYDROmorphone/PF 0.2 MG/ML SYRINGE IV PRN ×2 (09:05→13:50)
[2023-07-04] MEDS ORDERED: HYDROmorphone inj. 0.5 MG/0.5 ML DISP.SYRIN IV PRN (09:05)
[2023-07-04] MEDS ORDERED: magnesium 2GM in 50ml NS 50 ML IV PRN ×2 (09:05→13:50)
[2023-07-04] MEDS ORDERED: acetaminophen 325mg tablet PO PRN ×4 (09:05→13:50)
[2023-07-04] MEDS ORDERED: ondansetron 4mg rapidly disintigrating tab PO PRN ×2 (09:05→13:50)
[2023-07-04] MEDS ORDERED: HYDROcodone/acetaminophen 10/325mg tab PO PRN ×2 (09:05→13:50)
[2023-07-04] MEDS ORDERED: acetaminophen 650mg rectal suppository RC PRN ×2 (09:05→13:50)
[2023-07-04] MEDS ORDERED: potassium Cl 20 mEq SR tablet PO PRN ×4 (09:05→13:50)
[2023-07-04] MEDS ORDERED: furosemide 40mg/4ml inj IV ONE (09:05)
[2023-07-04 09:15] LABS: HEMOGLOBIN 10.4 g/dl (14.0-17.9); RED CELL DISTRIBUTION WIDTH 17.8 % (11.5-14.5); WHITE BLOOD COUNT 12.1 X10'3 (4.5-11.0)
[2023-07-04 09:18] LABS: BASOPHILS # (AUTO) 0.1 X10'3 (0-0.2); BASOPHILS % (AUTO) 0.7 % (0-1); EOSINOPHILS # (AUTO) 0.1 X10'3 (0-0.9); EOSINOPHILS % (AUTO) 0.9 % (0-6); HEMATOCRIT 33.2 % (42.0-52.0); LYMPHOCYTES # (AUTO) 1.6 X10'3 (1.1-4.8); LYMPHOCYTES % (AUTO) 13.5 % (21-51); MEAN CORPUSCULAR HEMOGLOBIN 25.9 PG (27.0-31.0); MEAN CORPUSCULAR HGB CONC 31.5 g/dL (33.0-36.5); MEAN CORPUSCULAR VOLUME 82.3 FL (78-98); MONOCYTES # (AUTO) 1.2 X10'3 (0-0.9); MONOCYTES % (AUTO) 9.8 % (2-12); NEUTROPHILS # (AUTO) 9.1 X10'3 (1.8-7.7); NEUTROPHILS % (AUTO) 75.1 % (42-75); PLATELET COUNT 404 X10'3 (140-440); RED BLOOD COUNT 4.03 X10'6 (4.70-6.10)
[2023-07-04] MEDS: CefTRIAXone/D5W-Rocephin 1gm 50 ML IV SCH (09:54)
[2023-07-04] MEDS: vancomycin/NS 1 GM ADD-VANTAGE 250 ML IV SCH ×2 (11:00→20:52)
[2023-07-04] MEDS ORDERED: heparin 10,000 units/1 ML INJ IV PRN ×2 (12:35→13:50)
[2023-07-04] MEDS ORDERED: heparin 10,000 units/1 ML INJ IV ONE ×2 (12:35→13:50)
[2023-07-04] MEDS ORDERED: heparin 25,000 UNIT/250ml bag 250 ML IV PRN ×2 (12:35→13:50)
[2023-07-04] MEDS ORDERED: iohexol 350MG/ML 100ml bottle IV ONE (13:33)
[2023-07-04] MEDS ORDERED: bisacodyl 10mg suppository rectal RC PRN (13:50)
[2023-07-04 14:12] LABS: INR 1.1 INR; PROTHROMBIN TIME 11.7 SECONDS (9.0-12.0)
[2023-07-04] MEDS: HYDROmorphone inj. 0.5 MG/0.5 ML DISP.SYRIN IV PRN (15:30)
[2023-07-04 16:16] LABS: CREATINE KINASE 249 U/L (39-308)
[2023-07-04] MEDS: furosemide 40mg/4ml inj IV SCH ×2 (17:52→20:52)
[2023-07-04] MEDS ORDERED: furosemide 10 MG/1 ML 10ml inj IV ONE (17:55)
[2023-07-04] MEDS ORDERED: LORazepam 0.5 MG tablet PO PRN (18:00)
[2023-07-04] MEDS ORDERED: haloperidol lactate 5mg/ml inj IM PRN (18:00)
[2023-07-04] MEDS ORDERED: LORazepam 1 MG tablet PO PRN (18:00)
[2023-07-04] MEDS ORDERED: LORazepam 2 mg/ml vial IV PRN ×2 (18:00)
[2023-07-04] MEDS ORDERED: diphenhydrAMINE 50 mg/ml inj IV PRN (18:20)
[2023-07-04] MEDS: nicotine 14mg patch - 24hr TD SCH (18:48)
[2023-07-04 19:25] VITALS: BP 128/92; PULSE 108; RESP 20; TEMP 97.8; O2SAT 97
[2023-07-04 20:00] VITALS: RESP 18; O2SAT 96
[2023-07-04] MEDS: K and/or MAG REPLACEMENT MC SCH (20:00)
[2023-07-04] MEDS ORDERED: K and/or MAG REPLACEMENT MC SCH (20:00)
[2023-07-04] MEDS ORDERED: docusate sod 100mg capsule PO SCH (20:00)
[2023-07-04] MEDS ORDERED: heparin, porcine 5000 units/ml vial SQ SCH (20:00)
[2023-07-04] MEDS: docusate sod 100mg capsule PO SCH (20:52)
[2023-07-04] MEDS ORDERED: temazepam 15mg capsule PO PRN (21:00)
[2023-07-04 22:00] VITALS: BP 121/85; PULSE 105; RESP 20; TEMP 97.9; O2SAT 98
[2023-07-05] VITALS (11 sets, daily range): BP systolic 110–134; BP diastolic 87–91; PULSE 98–112; RESP 16–26; TEMP 97.5–98.6; O2SAT 88–98
[2023-07-05] MEDS: HYDROmorphone inj. 0.5 MG/0.5 ML DISP.SYRIN IV PRN ×4 (00:46→20:12)
[2023-07-05 03:59] LABS: LYMPHOCYTES # (AUTO) 2.2 X10'3 (1.1-4.8); MEAN CORPUSCULAR VOLUME 81.2 FL (78-98)
[2023-07-05 04:01] LABS: BASOPHILS # (AUTO) 0.2 X10'3 (0-0.2); BASOPHILS % (AUTO) 1.4 % (0-1); EOSINOPHILS # (AUTO) 0.2 X10'3 (0-0.9); EOSINOPHILS % (AUTO) 1.4 % (0-6); HEMATOCRIT 31.3 % (42.0-52.0); HEMOGLOBIN 9.8 g/dl (14.0-17.9); LYMPHOCYTES % (AUTO) 20.1 % (21-51); MEAN CORPUSCULAR HEMOGLOBIN 25.5 PG (27.0-31.0); MEAN CORPUSCULAR HGB CONC 31.4 g/dL (33.0-36.5); MEAN PLATELET VOLUME 8.3 FL (7.4-10.4); MONOCYTES # (AUTO) 1.5 X10'3 (0-0.9); NEUTROPHILS % (AUTO) 63.1 % (42-75); PLATELET COUNT 324 X10'3 (140-440); RED BLOOD COUNT 3.85 X10'6 (4.70-6.10); RED CELL DISTRIBUTION WIDTH 18.5 % (11.5-14.5)
[2023-07-05 04:07] LABS: ALANINE AMINOTRANSFERASE 309 U/L (12-78); ALBUMIN 2.7 G/DL (3.4-5.0); ALBUMIN/GLOBULIN RATIO 0.6 (1.1-1.5); ALKALINE PHOSPHATASE 119 IU/L (46-116); ANION GAP 7 (8-16); ASPARTATE AMINO TRANSFERASE 110 U/L (10-37); BILIRUBIN,TOTAL 0.9 MG/DL (0.1-1.0); BLOOD UREA NITROGEN 36 MG/DL (7-18); BUN/CREATININE RATIO 24.8 (10.0-20.0); CALCIUM 8.9 MG/DL (8.5-10.1); CHLORIDE 98 MMOL/L (99-107); CREATININE 1.45 MG/DL (0.60-1.10); GLUCOSE 126 MG/DL (70-104); POTASSIUM 4.1 MMOL/L (3.5-5.1); SODIUM 134 MMOL/L (135-145); TOTAL CARBON DIOXIDE 29.4 MMOL/L (24-32); TOTAL PROTEIN 7.2 G/DL (6.4-8.2); eCRCL 61 ML/MIN; eGFR 52 ML/MIN
[2023-07-05 05:01] LABS: ANISOCYTOSIS 2+; ELLIPTOCYTES FEW; HYPOCHROMASIA 1+; NUCLEATED RED BLOOD CELLS 1 /100WBC (0-0); PLATELET ESTIMATE NORMAL; POLYCHROMASIA 1+; TARGET CELLS FEW; TOTAL CELLS COUNTED 100
[2023-07-05] MEDS: CefTRIAXone/D5W-Rocephin 1gm 50 ML IV SCH (07:50)
[2023-07-05] MEDS: docusate sod 100mg capsule PO SCH ×2 (07:50→20:00)
[2023-07-05] MEDS: nicotine 14mg patch - 24hr TD SCH (07:51)
[2023-07-05] MEDS: K and/or MAG REPLACEMENT MC SCH ×2 (08:00→20:00)
[2023-07-05] MEDS ORDERED: iohexol 350MG/ML 100ml bottle IV ONE (11:16)
[2023-07-05] MEDS ORDERED: FLU VACC QS2023-24(6MOS UP)/PF 60 MCG/0.5 ML SYRINGE IM ONE (12:00)
[2023-07-05] MEDS ORDERED: pneumococcal 23-VAL P-sac vacc 25 mcg/0.5ml vial IMVAC ONE (12:00)
[2023-07-05] MEDS: vancomycin/NS 1 GM ADD-VANTAGE 250 ML IV SCH ×2 (12:00→22:00)
[2023-07-05] MEDS ORDERED: ASPI-1264 PO (14:14)
[2023-07-05] MEDS ORDERED: CARV3.123 PO (14:14)
[2023-07-05] MEDS ORDERED: SPIR25TA5 PO (14:16)
[2023-07-05] MEDS ORDERED: EMPA10TA PO (14:16)
[2023-07-05] MEDS ORDERED: FURO40TA4 PO (14:16)
[2023-07-05] MEDS ORDERED: albuterol 2.5 MG/3 ML nebule NEB PRN (14:30)
[2023-07-05] MEDS: ipratropium/albuterol 3ml nebule NEB SCH ×3 (15:55→23:09)
[2023-07-05] MEDS: budesonide 0.5mg/2ml UD nebule IH SCH (19:34)
[2023-07-05] MEDS: furosemide 40mg/4ml inj IV SCH (20:12)
[2023-07-05] MEDS: carVEDilol 3.125mg tablet PO SCH (20:13)
[2023-07-05] MEDS ORDERED: VANCOMYCIN LEVEL IV ONE (21:30)
[2023-07-06] MEDS: HYDROmorphone inj. 0.5 MG/0.5 ML DISP.SYRIN IV PRN ×2 (00:54→05:24)
[2023-07-06 06:00] VITALS: BP 101/82; PULSE 98; RESP 24; TEMP 97.9; O2SAT 98
[2023-07-06] MEDS: budesonide 0.5mg/2ml UD nebule IH SCH (07:12)
[2023-07-06] MEDS: ipratropium/albuterol 3ml nebule NEB SCH ×2 (07:12→11:29)
[2023-07-06 07:14] VITALS: PULSE 98; RESP 6; O2SAT 99
[2023-07-06 07:19] VITALS: PULSE 105; RESP 20
[2023-07-06 07:43] LABS: BASOPHILS # (AUTO) 0.1 X10'3 (0-0.2); BASOPHILS % (AUTO) 0.6 % (0-1); EOSINOPHILS # (AUTO) 0.3 X10'3 (0-0.9); EOSINOPHILS % (AUTO) 2.2 % (0-6); HEMATOCRIT 32.2 % (42.0-52.0); HEMOGLOBIN 10.2 g/dl (14.0-17.9); LYMPHOCYTES # (AUTO) 2.2 X10'3 (1.1-4.8); LYMPHOCYTES % (AUTO) 19.1 % (21-51); MEAN CORPUSCULAR HEMOGLOBIN 25.8 PG (27.0-31.0); MEAN CORPUSCULAR HGB CONC 31.5 g/dL (33.0-36.5); MEAN CORPUSCULAR VOLUME 81.7 FL (78-98); MEAN PLATELET VOLUME 8.6 FL (7.4-10.4); MONOCYTES # (AUTO) 1.4 X10'3 (0-0.9); MONOCYTES % (AUTO) 12.3 % (2-12); NEUTROPHILS # (AUTO) 7.6 X10'3 (1.8-7.7); NEUTROPHILS % (AUTO) 65.8 % (42-75); PLATELET COUNT 410 X10'3 (140-440); RED BLOOD COUNT 3.94 X10'6 (4.70-6.10); RED CELL DISTRIBUTION WIDTH 18.1 % (11.5-14.5); WHITE BLOOD COUNT 11.6 X10'3 (4.5-11.0)
[2023-07-06 07:57] LABS: ALANINE AMINOTRANSFERASE 250 U/L (12-78); ALBUMIN 2.7 G/DL (3.4-5.0); ALBUMIN/GLOBULIN RATIO 0.6 (1.1-1.5); ALKALINE PHOSPHATASE 112 IU/L (46-116); ANION GAP 7 (8-16); ASPARTATE AMINO TRANSFERASE 65 U/L (10-37); BILIRUBIN,TOTAL 0.8 MG/DL (0.1-1.0); BLOOD UREA NITROGEN 35 MG/DL (7-18); BUN/CREATININE RATIO 25.5 (10.0-20.0); CALCIUM 8.8 MG/DL (8.5-10.1); CHLORIDE 97 MMOL/L (99-107); CREATININE 1.37 MG/DL (0.60-1.10); GLUCOSE 118 MG/DL (70-104); POTASSIUM 4.7 MMOL/L (3.5-5.1); SODIUM 132 MMOL/L (135-145); TOTAL CARBON DIOXIDE 27.9 MMOL/L (24-32); TOTAL PROTEIN 7.4 G/DL (6.4-8.2); eCRCL 65 ML/MIN; eGFR 55 ML/MIN
[2023-07-06] MEDS ORDERED: spironolactone 25 MG tablet PO SCH (08:00)
[2023-07-06] MEDS ORDERED: EMPAGLIFLOZIN 10 MG TABLET PO SCH (08:00)
[2023-07-06] MEDS: carVEDilol 3.125mg tablet PO SCH (09:33)
[2023-07-06] MEDS: nicotine 14mg patch - 24hr TD SCH (09:33)
[2023-07-06] MEDS: K and/or MAG REPLACEMENT MC SCH (09:34)
[2023-07-06] MEDS: docusate sod 100mg capsule PO SCH (09:34)
[2023-07-06] MEDS: furosemide 40mg/4ml inj IV SCH (09:35)
[2023-07-06] MEDS: CefTRIAXone/D5W-Rocephin 1gm 50 ML IV SCH (09:35)
[2023-07-06] MEDS ORDERED: VANCOMYCIN 750MG IV in NS 250 ML IV SCH (10:00)
[2023-07-06 11:00] VITALS: BP 112/73; PULSE 103; RESP 21; TEMP 98.2; O2SAT 98
[2023-07-06 11:16] LABS: HBSAG SCREEN Negative (Negative); HEP A AB, IGM Negative (Negative); HEP B CORE AB, IGM Negative (Negative); HEPATITIS C VIRUS ANTIBODY Non Reactive (Non Reactive)
[2023-07-06 11:30] VITALS: PULSE 91; RESP 16; O2SAT 98
[2023-07-06 11:38] VITALS: PULSE 88; RESP 20
[2023-07-06] MEDS ORDERED: apixaban 5mg tablet PO ONE (12:05)
[2023-07-06] MEDS ORDERED: APIX5TAB3 PO (12:08)
[2023-07-07] MEDS ORDERED: VANCOMYCIN LEVEL IV ONE (21:30)
== END 2023-07-06 14:40 | disposition home or self-care (01) | DRG 197 ==
LOC: ER 03:40 → ED HOLD 09:19 → PCU 3S 19:17
PROVIDERS: ADMIT Family Medicine; ATTEND Family Medicine
DX: I82.622 Acute embolism and thrombosis of deep veins of left upper extremity (principal); I13.0 Hypertensive heart and chronic kidney disease with heart failure and stage 1 through stage 4 chronic kidney disease, or unspecified chronic kidney disease; I50.22 Chronic systolic (congestive) heart failure; F15.90 Other stimulant use, unspecified, uncomplicated; F17.210 Nicotine dependence, cigarettes, uncomplicated; J43.9 Emphysema, unspecified; K81.9 Cholecystitis, unspecified; L03.114 Cellulitis of left upper limb; N18.9 Chronic kidney disease, unspecified; Z53.29 Procedure and treatment not carried out because of patient's decision for other reasons; Z56.0 Unemployment, unspecified; Z59.00 Homelessness unspecified; Z79.01 Long term (current) use of anticoagulants; Z88.0 Allergy status to penicillin; Z82.3 Family history of stroke; Z79.899 Other long term (current) drug therapy; Z79.84 Long term (current) use of oral hypoglycemic drugs; Z82.49 Family history of ischemic heart disease and other diseases of the circulatory system; Z90.49 Acquired absence of other specified parts of digestive tract
CPT/HCPCS: 36415; 71045; 71275; 73200; 80053; 80074; 80202; 81001; 82140; 82550; 83735; 83880; 84132; 84145; 84484; 85007; 85025; 85610; 85730; 87040; 87081; 90686; 90732; 93005; 93308; 93970; 93971; 94640; 94760; 99285; A4615; A6223; A6258; A6449; G0378; J0696; J1170; J1644; J1940; J3370; J3490; J7030; J7040; Q9967

== ENCOUNTER 2023-07-07 17:30 | Emergency (ER) | payer MEDICAID ==
[~2023-07-07 17:30] MED LIST changes: +APIX5TAB3 PO; -ASPI-1071 PO; +ASPI-1264 PO; +CARV3.123 PO; -CARV6.253 PO; -FURO-150 PO; -LEVO-65 PO; -LOSA25TA41 PO; -METR-159 PO; -SPIR25TA PO; +SPIR25TA5 PO
[2023-07-07 18:10] LABS: BASOPHILS # (AUTO) 0.1 X10'3 (0-0.2); BASOPHILS % (AUTO) 0.4 % (0-1); EOSINOPHILS # (AUTO) 0.1 X10'3 (0-0.9); EOSINOPHILS % (AUTO) 0.5 % (0-6); HEMATOCRIT 35.1 % (42.0-52.0); HEMOGLOBIN 10.8 g/dl (14.0-17.9); LYMPHOCYTES # (AUTO) 1.4 X10'3 (1.1-4.8); MEAN CORPUSCULAR HGB CONC 30.8 g/dL (33.0-36.5); MEAN PLATELET VOLUME 8.3 FL (7.4-10.4); MONOCYTES % (AUTO) 7.6 % (2-12); NEUTROPHILS # (AUTO) 11.2 X10'3 (1.8-7.7); NEUTROPHILS % (AUTO) 81.5 % (42-75); PLATELET COUNT 467 X10'3 (140-440); RED BLOOD COUNT 4.33 X10'6 (4.70-6.10); RED CELL DISTRIBUTION WIDTH 18.3 % (11.5-14.5); WHITE BLOOD COUNT 13.7 X10'3 (4.5-11.0)
[2023-07-07 18:19] LABS: APTT 28 SECONDS (22-32); INR 1.3 INR; PROTHROMBIN TIME 13.5 SECONDS (9.0-12.0)
[2023-07-07 18:23] LABS: ALANINE AMINOTRANSFERASE 215 U/L (12-78); ALBUMIN 3.3 G/DL (3.4-5.0); ALBUMIN/GLOBULIN RATIO 0.6 (1.1-1.5); ALKALINE PHOSPHATASE 116 IU/L (46-116); ANION GAP 13 (8-16); ASPARTATE AMINO TRANSFERASE 48 U/L (10-37); BILIRUBIN,TOTAL 1.1 MG/DL (0.1-1.0); BLOOD UREA NITROGEN 36 MG/DL (7-18); BUN/CREATININE RATIO 23.1 (10.0-20.0); CALCIUM 9.6 MG/DL (8.5-10.1); CHLORIDE 94 MMOL/L (99-107); CREATININE 1.56 MG/DL (0.60-1.10); GLUCOSE 129 MG/DL (70-104); POTASSIUM 4.5 MMOL/L (3.5-5.1); SODIUM 133 MMOL/L (135-145); TOTAL CARBON DIOXIDE 26.1 MMOL/L (24-32); TOTAL PROTEIN 8.5 G/DL (6.4-8.2); eGFR 47 ML/MIN
[2023-07-07 18:29] LABS: ETHANOL < 10 MG/DL (<10); MAGNESIUM 2.4 MG/DL (1.5-2.4); PRO BRAIN NATRIURETIC PEPTIDE 19359 PG/ML (0-125)
[2023-07-08] MEDS: furosemide 10 MG/1 ML 10ml inj IV ONE (02:50)
[2023-07-08] MEDS: nitroGLYCERIN 1gm ointment UD TP ONE ×2 (04:22→04:48)
[2023-07-08] MEDS: aspirin 325mg tablet PO ONE (04:22)
[2023-07-08] MEDS: CefTRIAXone 2gm/D5W 50ml BAG 50 ML IV ONE ×2 (04:23→04:48)
[2023-07-08] MEDS: furosemide 40mg/4ml inj ONE (04:48)
[2023-07-08] MEDS: aspirin 325mg tablet ONE (04:49)
[2023-07-08] MEDS: azithromycin/NS 500mg/250ml 250 ML IV SCH (04:59)
[2023-07-08] MEDS ORDERED: SULF1TAB49 PO (05:44)
[2023-07-08] MEDS ORDERED: DOXY-1 PO (05:44)
[2023-07-08 05:46] VITALS: BP 121/85; PULSE 62; RESP 17; TEMP 98; O2SAT 98
== END 2023-07-08 06:03 | disposition home or self-care (01) ==
LOC: ER 17:31
DX: L03.90 Cellulitis, unspecified (principal); R05.9 Cough, unspecified; J44.9 Chronic obstructive pulmonary disease, unspecified; I50.9 Heart failure, unspecified; F15.90 Other stimulant use, unspecified, uncomplicated; Z88.0 Allergy status to penicillin; Z88.5 Allergy status to narcotic agent; Z79.82 Long term (current) use of aspirin; Z79.899 Other long term (current) drug therapy
CPT/HCPCS: 36415; 71045; 80053; 80320; 83735; 83880; 84484; 85025; 85610; 85730; 93005; 96365; 96367; 96375; 99285; J0456; J0696; J1940

== ENCOUNTER 2023-07-09 17:49 | Emergency (ER) | payer MEDICAID ==
[~2023-07-09] VITALS: Ht 175.3 cm; Wt 63.0 kg
[~2023-07-09 17:49] MED LIST changes: +DOXY-1 PO; +SULF1TAB49 PO
[2023-07-09 18:43] LABS: ALANINE AMINOTRANSFERASE 161 U/L (12-78); ALBUMIN/GLOBULIN RATIO 0.6 (1.1-1.5); ALKALINE PHOSPHATASE 140 IU/L (46-116); ANION GAP 13 (8-16); ASPARTATE AMINO TRANSFERASE 48 U/L (10-37); BILIRUBIN,TOTAL 1.5 MG/DL (0.1-1.0); BLOOD UREA NITROGEN 35 MG/DL (7-18); BUN/CREATININE RATIO 23.3 (10.0-20.0); CALCIUM 9.1 MG/DL (8.5-10.1); CHLORIDE 96 MMOL/L (99-107); GLUCOSE 129 MG/DL (70-104); POTASSIUM 4.5 MMOL/L (3.5-5.1); SODIUM 134 MMOL/L (135-145); TOTAL CARBON DIOXIDE 25.1 MMOL/L (24-32); TOTAL PROTEIN 7.9 G/DL (6.4-8.2); eCRCL 53 ML/MIN; eGFR 50 ML/MIN
[2023-07-09 18:52] LABS: BASOPHILS # (AUTO) 0.2 X10'3 (0-0.2); BASOPHILS % (AUTO) 1.3 % (0-1); EOSINOPHILS # (AUTO) 0.1 X10'3 (0-0.9); EOSINOPHILS % (AUTO) 0.4 % (0-6); HEMATOCRIT 32.3 % (42.0-52.0); LYMPHOCYTES # (AUTO) 1.7 X10'3 (1.1-4.8); LYMPHOCYTES % (AUTO) 11.8 % (21-51); MEAN CORPUSCULAR HEMOGLOBIN 25.1 PG (27.0-31.0); MEAN CORPUSCULAR HGB CONC 30.9 g/dL (33.0-36.5); MEAN CORPUSCULAR VOLUME 81.3 FL (78-98); MEAN PLATELET VOLUME 8.3 FL (7.4-10.4); MONOCYTES # (AUTO) 1.2 X10'3 (0-0.9); MONOCYTES % (AUTO) 8.5 % (2-12); NEUTROPHILS # (AUTO) 11.1 X10'3 (1.8-7.7); PLATELET COUNT 408 X10'3 (140-440); RED BLOOD COUNT 3.98 X10'6 (4.70-6.10); WHITE BLOOD COUNT 14.3 X10'3 (4.5-11.0)
[2023-07-09 18:53] LABS: PRO BRAIN NATRIURETIC PEPTIDE 18785 PG/ML (0-125)
[2023-07-09] MEDS ORDERED: OLANZapine 2.5MG tablet PO STA (22:29)
[2023-07-09] MEDS ORDERED: furosemide 10 MG/1 ML 10ml inj IV ONE (22:30)
[2023-07-09 23:53] LABS: URINE AMPHETAMINE SCREEN POSITIVE (Neg); URINE BARBITUATE SCREEN NEGATIVE (Neg); URINE BENZODIAZEPINES SCREEN NEGATIVE (Neg); URINE CANNABINOID SCREEN POSITIVE (Neg); URINE COCAINE SCREEN NEGATIVE (Neg); URINE METHADONE SCREEN NEGATIVE (Neg); URINE OPIATE SCREEN NEGATIVE (Neg); URINE PHENCYCLIDINE SCREEN NEGATIVE (Neg)
[2023-07-10 00:30] VITALS: TEMP 97.9
[2023-07-10] MEDS ORDERED: FURO40TA4 PO (05:29)
[2023-07-10 07:14] VITALS: BP 121/83; PULSE 103; RESP 16
[2023-07-11] MEDS ORDERED: CEPH-585 PO (11:27)
[2023-07-11] MEDS ORDERED: FURO-150 PO (11:27)
[2023-07-11] MEDS ORDERED: HYDR-3965 PO (13:26)
== END 2023-07-10 07:18 | disposition home or self-care (01) ==
LOC: ER 17:50
DX: I50.9 Heart failure, unspecified (principal); F15.10 Other stimulant abuse, uncomplicated
CPT/HCPCS: 36415; 71045; 80053; 80305; 83880; 84484; 85025; 93005; 96374; 99285; J1940

== ENCOUNTER 2023-07-11 05:19 | Emergency (ER) | payer MEDICAID ==
[~2023-07-11] VITALS: Ht 175.3 cm; Wt 75.0 kg
[2023-07-11 05:37] VITALS: BP 145/103; PULSE 107; TEMP 98.7; O2SAT 98
[2023-07-11 07:21] LABS: BASOPHILS # (AUTO) 0.2 X10'3 (0-0.2); BASOPHILS % (AUTO) 1.5 % (0-1); EOSINOPHILS # (AUTO) 0.1 X10'3 (0-0.9); EOSINOPHILS % (AUTO) 0.8 % (0-6); HEMATOCRIT 29.9 % (42.0-52.0); HEMOGLOBIN 9.3 g/dl (14.0-17.9); LYMPHOCYTES # (AUTO) 1.7 X10'3 (1.1-4.8); LYMPHOCYTES % (AUTO) 10.8 % (21-51); MEAN CORPUSCULAR HEMOGLOBIN 25.2 PG (27.0-31.0); MEAN CORPUSCULAR HGB CONC 31.1 g/dL (33.0-36.5); MONOCYTES % (AUTO) 6.4 % (2-12); NEUTROPHILS # (AUTO) 12.4 X10'3 (1.8-7.7); NEUTROPHILS % (AUTO) 80.5 % (42-75); PLATELET COUNT 352 X10'3 (140-440); RED BLOOD COUNT 3.69 X10'6 (4.70-6.10); RED CELL DISTRIBUTION WIDTH 18.3 % (11.5-14.5); WHITE BLOOD COUNT 15.4 X10'3 (4.5-11.0)
[2023-07-11 07:28] LABS: INR 1.4 INR; PROTHROMBIN TIME 15.2 SECONDS (9.0-12.0)
[2023-07-11 07:31] LABS: ALANINE AMINOTRANSFERASE 120 U/L (12-78); ALBUMIN 2.8 G/DL (3.4-5.0); ALBUMIN/GLOBULIN RATIO 0.6 (1.1-1.5); ALKALINE PHOSPHATASE 140 IU/L (46-116); ANION GAP 13 (8-16); ASPARTATE AMINO TRANSFERASE 38 U/L (10-37); BILIRUBIN,TOTAL 0.9 MG/DL (0.1-1.0); BLOOD UREA NITROGEN 35 MG/DL (7-18); BUN/CREATININE RATIO 21.6 (10.0-20.0); CALCIUM 8.8 MG/DL (8.5-10.1); CHLORIDE 98 MMOL/L (99-107); CREATININE 1.62 MG/DL (0.60-1.10); GLUCOSE 128 MG/DL (70-104); POTASSIUM 3.7 MMOL/L (3.5-5.1); SODIUM 133 MMOL/L (135-145); TOTAL CARBON DIOXIDE 22.4 MMOL/L (24-32); TOTAL PROTEIN 7.5 G/DL (6.4-8.2); eCRCL 55 ML/MIN; eGFR 45 ML/MIN
[2023-07-11 07:39] LABS: PRO BRAIN NATRIURETIC PEPTIDE 16576 PG/ML (0-125)
[2023-07-11] MEDS ORDERED: cephalexin 250mg capsule PO ONE (11:25)
[2023-07-11] MEDS ORDERED: furosemide 40mg/4ml inj IV ONE (11:25)
[2023-07-11] MEDS ORDERED: HYDROcodone/acetaminophen 10/325mg tab PO ONE (11:25)
[2023-07-11] MEDS ORDERED: CEPH-585 PO (11:27)
[2023-07-11] MEDS ORDERED: FURO-150 PO (11:27)
[2023-07-11 12:15] LABS: STREP A SCREEN NEGATIVE (Neg)
[2023-07-11 12:19] VITALS: RESP 18
[2023-07-11] MEDS ORDERED: HYDR-3965 PO (13:26)
== END 2023-07-11 13:52 | disposition home or self-care (01) ==
LOC: ER 05:19
DX: R60.0 Localized edema (principal); R07.0 Pain in throat
CPT/HCPCS: 36415; 71045; 80053; 83880; 84484; 85025; 85610; 87081; 87880; 93005; 96374; 99285; J1940

== ENCOUNTER 2023-07-13 10:11 | Emergency (ER) | payer MEDICAID ==
[~2023-07-13] VITALS: Ht 175.3 cm; Wt 64.0 kg
[~2023-07-13 10:11] MED LIST changes: +CEPH-585 PO; +FURO-150 PO; +HYDR-3965 PO
[2023-07-13 10:14] VITALS: BP 128/84; PULSE 111; RESP 16; TEMP 97.8; O2SAT 98
== END 2023-07-13 12:50 | disposition left against medical advice (07) ==
LOC: ER 10:11
DX: R11.2 Nausea with vomiting, unspecified (principal); Z53.21 Procedure and treatment not carried out due to patient leaving prior to being seen by health care provider
CPT/HCPCS: 99281

== ENCOUNTER 2023-07-13 21:07 | Emergency (ER) | payer MEDICAID ==
[~2023-07-13] VITALS: Ht 175.3 cm; Wt 72.0 kg
[2023-07-13 21:18] VITALS: TEMP 98.2
[2023-07-14 02:50] VITALS: BP 132/77; PULSE 90; RESP 20; O2SAT 95
[2023-07-14 08:24] LABS: BASOPHILS % (AUTO) 0.2 % (0-1); EOSINOPHILS % (AUTO) 0.2 % (0-6); HEMATOCRIT 32.9 % (42.0-52.0); HEMOGLOBIN 10.2 g/dl (14.0-17.9); LYMPHOCYTES # (AUTO) 0.8 X10'3 (1.1-4.8); LYMPHOCYTES % (AUTO) 6.2 % (21-51); MEAN CORPUSCULAR HEMOGLOBIN 24.8 PG (27.0-31.0); MEAN CORPUSCULAR HGB CONC 31.1 g/dL (33.0-36.5); MEAN CORPUSCULAR VOLUME 79.7 FL (78-98); MEAN PLATELET VOLUME 7.9 FL (7.4-10.4); MONOCYTES # (AUTO) 1.1 X10'3 (0-0.9); MONOCYTES % (AUTO) 8.6 % (2-12); NEUTROPHILS # (AUTO) 11.3 X10'3 (1.8-7.7); NEUTROPHILS % (AUTO) 84.8 % (42-75); PLATELET COUNT 250 X10'3 (140-440); RED BLOOD COUNT 4.13 X10'6 (4.70-6.10); RED CELL DISTRIBUTION WIDTH 18.3 % (11.5-14.5); WHITE BLOOD COUNT 13.3 X10'3 (4.5-11.0)
[2023-07-14 08:41] LABS: ALANINE AMINOTRANSFERASE 134 U/L (12-78); ALBUMIN 2.8 G/DL (3.4-5.0); ALBUMIN/GLOBULIN RATIO 0.6 (1.1-1.5); ALKALINE PHOSPHATASE 127 IU/L (46-116); ANION GAP 5 (8-16); ASPARTATE AMINO TRANSFERASE 118 U/L (10-37); BILIRUBIN,TOTAL 2.3 MG/DL (0.1-1.0); BLOOD UREA NITROGEN 48 MG/DL (7-18); BUN/CREATININE RATIO 29.6 (10.0-20.0); CALCIUM 9.1 MG/DL (8.5-10.1); CHLORIDE 92 MMOL/L (99-107); CREATININE 1.62 MG/DL (0.60-1.10); GLUCOSE 109 MG/DL (70-104); POTASSIUM 4.6 MMOL/L (3.5-5.1); SODIUM 128 MMOL/L (135-145); TOTAL CARBON DIOXIDE 31.5 MMOL/L (24-32); TOTAL PROTEIN 7.2 G/DL (6.4-8.2); eCRCL 55 ML/MIN; eGFR 45 ML/MIN
[2023-07-14 08:43] LABS: LIPASE 58 U/L (16-77)
== END 2023-07-14 10:46 | disposition left against medical advice (07) ==
LOC: ER 21:08
DX: R11.2 Nausea with vomiting, unspecified (principal); Z53.21 Procedure and treatment not carried out due to patient leaving prior to being seen by health care provider
CPT/HCPCS: 36415; 80053; 83690; 85025; 99281

== ENCOUNTER 2023-07-18 14:30 | Emergency (ER) | payer MEDICAID ==
[~2023-07-18] VITALS: Ht 175.3 cm; Wt 75.5 kg
[2023-07-18 15:35] VITALS: BP 134/92; PULSE 120; RESP 18; TEMP 97.7; O2SAT 96
[2023-07-18 16:45] LABS: BASOPHILS # (AUTO) 0.1 X10'3 (0-0.2); BASOPHILS % (AUTO) 0.5 % (0-1); EOSINOPHILS % (AUTO) 0.4 % (0-6); HEMATOCRIT 35.4 % (42.0-52.0); LYMPHOCYTES # (AUTO) 0.9 X10'3 (1.1-4.8); MEAN CORPUSCULAR HEMOGLOBIN 25.3 PG (27.0-31.0); MEAN CORPUSCULAR VOLUME 81.6 FL (78-98); MEAN PLATELET VOLUME 8.8 FL (7.4-10.4); MONOCYTES # (AUTO) 0.9 X10'3 (0-0.9); MONOCYTES % (AUTO) 8.8 % (2-12); NEUTROPHILS # (AUTO) 8.1 X10'3 (1.8-7.7); NEUTROPHILS % (AUTO) 81.3 % (42-75); PLATELET COUNT 249 X10'3 (140-440); RED BLOOD COUNT 4.34 X10'6 (4.70-6.10); RED CELL DISTRIBUTION WIDTH 19.8 % (11.5-14.5)
[2023-07-18 17:03] LABS: ALANINE AMINOTRANSFERASE 186 U/L (12-78); ALBUMIN/GLOBULIN RATIO 0.6 (1.1-1.5); ALKALINE PHOSPHATASE 166 IU/L (46-116); ANION GAP 12 (8-16); ASPARTATE AMINO TRANSFERASE 260 U/L (10-37); BILIRUBIN,TOTAL 2.8 MG/DL (0.1-1.0); BLOOD UREA NITROGEN 36 MG/DL (7-18); CALCIUM 9.1 MG/DL (8.5-10.1); CHLORIDE 91 MMOL/L (99-107); CREATININE 1.64 MG/DL (0.60-1.10); GLUCOSE 121 MG/DL (70-104); POTASSIUM 4.3 MMOL/L (3.5-5.1); SODIUM 126 MMOL/L (135-145); TOTAL CARBON DIOXIDE 23.4 MMOL/L (24-32); TOTAL PROTEIN 8.1 G/DL (6.4-8.2); eCRCL 54 ML/MIN; eGFR 45 ML/MIN
[2023-07-18 17:08] LABS: ANISOCYTOSIS 2+; ELLIPTOCYTES FEW; HYPOCHROMASIA 1+; PLATELET ESTIMATE NORMAL; TEAR DROP CELLS FEW
[2023-07-18 17:09] LABS: POLYCHROMASIA FEW
== END 2023-07-18 19:32 | disposition left against medical advice (07) ==
LOC: ER 14:30
DX: M79.671 Pain in right foot (principal); Z53.21 Procedure and treatment not carried out due to patient leaving prior to being seen by health care provider
CPT/HCPCS: 36415; 80053; 85008; 85025; 99281

== ENCOUNTER 2023-07-22 01:10 | Inpatient (IN) | payer MEDICAID ==
[~2023-07-22] VITALS: Ht 165.1 cm; Wt 70.0 kg
[~2023-07-22 01:10] MED LIST changes: -DOXY-1 PO; -SULF1TAB49 PO
[2023-07-22] MEDS ORDERED: acetaminophen 325mg tablet PO ONE (01:55)
[2023-07-22] MEDS ORDERED: diphenhydrAMINE 50 mg/ml inj IV ONE (06:20)
[2023-07-22] MEDS ORDERED: HYDROmorphone 1 mg/ml syringe IV ONE ×3 (06:20→18:00)
[2023-07-22 07:14] LABS: BASOPHILS % (AUTO) 0.4 % (0-1); EOSINOPHILS % (AUTO) 0.1 % (0-6); HEMATOCRIT 31.4 % (42.0-52.0); HEMOGLOBIN 9.5 g/dl (14.0-17.9); LYMPHOCYTES # (AUTO) 0.9 X10'3 (1.1-4.8); LYMPHOCYTES % (AUTO) 7.2 % (21-51); MEAN CORPUSCULAR HEMOGLOBIN 24.5 PG (27.0-31.0); MEAN CORPUSCULAR HGB CONC 30.5 g/dL (33.0-36.5); MEAN CORPUSCULAR VOLUME 80.4 FL (78-98); MEAN PLATELET VOLUME 8.6 FL (7.4-10.4); MONOCYTES # (AUTO) 1.3 X10'3 (0-0.9); NEUTROPHILS # (AUTO) 9.8 X10'3 (1.8-7.7); NEUTROPHILS % (AUTO) 81.3 % (42-75); PLATELET COUNT 254 X10'3 (140-440)
[2023-07-22 07:15] LABS: BILIRUBIN,URINE SMALL (Neg); CLARITY,URINE SLIGHTLY CLOUDY (Clear); COLOR,URINE DARK YELLOW (Yellow); GLUCOSE, URINE NEGATIVE (Neg); KETONES,URINE NEGATIVE (Neg); LEUKOCYTE ESTERASE ,URINE NEGATIVE (Neg); NITRITES, URINE NEGATIVE (Neg); OCCULT BLOOD,URINE LARGE (Neg); PH,URINE 5.5 (4.8-8.0); PROTEIN,URINE TRACE mg/dl (Neg); UA COLLECTION TYPE VOIDED
[2023-07-22 07:20] LABS: RBC,URINE TNTC /HPF (0-2); WBC,URINE 0-4 /HPF (0-4)
[2023-07-22 07:21] LABS: BACTERIA,URINE FEW /HPF (Neg); MUCUS STRANDS FEW /LPF (Neg); SQUAMOUS EPITHELIAL CELL,UR FEW /LPF (FEW)
[2023-07-22 07:32] LABS: PLATELET ESTIMATE NORMAL
[2023-07-22 07:33] LABS: ANISOCYTOSIS 2+; POLYCHROMASIA 1+; STOMATOCYTES 1+; TARGET CELLS 1+; TEAR DROP CELLS FEW
[2023-07-22 07:36] LABS: ALANINE AMINOTRANSFERASE 237 U/L (12-78); ALBUMIN 2.6 G/DL (3.4-5.0); ALBUMIN/GLOBULIN RATIO 0.6 (1.1-1.5); ALKALINE PHOSPHATASE 158 IU/L (46-116); ANION GAP 12 (8-16); ASPARTATE AMINO TRANSFERASE 274 U/L (10-37); BILIRUBIN,TOTAL 2.4 MG/DL (0.1-1.0); BLOOD UREA NITROGEN 25 MG/DL (7-18); BUN/CREATININE RATIO 18.1 (10.0-20.0); CALCIUM 8.9 MG/DL (8.5-10.1); CHLORIDE 95 MMOL/L (99-107); CREATININE 1.38 MG/DL (0.60-1.10); GLUCOSE 122 MG/DL (70-104); MAGNESIUM 1.7 MG/DL (1.5-2.4); POTASSIUM 3.6 MMOL/L (3.5-5.1); PRO BRAIN NATRIURETIC PEPTIDE 17920 PG/ML (0-125); SODIUM 133 MMOL/L (135-145); TOTAL CARBON DIOXIDE 25.6 MMOL/L (24-32); TOTAL PROTEIN 7.1 G/DL (6.4-8.2); eCRCL 56 ML/MIN; eGFR 55 ML/MIN
[2023-07-22 08:42] LABS: URINE AMPHETAMINE SCREEN POSITIVE (Neg); URINE BARBITUATE SCREEN NEGATIVE (Neg); URINE BENZODIAZEPINES SCREEN NEGATIVE (Neg); URINE CANNABINOID SCREEN POSITIVE (Neg); URINE COCAINE SCREEN NEGATIVE (Neg); URINE METHADONE SCREEN NEGATIVE (Neg); URINE OPIATE SCREEN NEGATIVE (Neg); URINE PHENCYCLIDINE SCREEN NEGATIVE (Neg)
[2023-07-22] MEDS ORDERED: piperacillin/tazo 3.375gm/50ml 50 ML IV ONE ×2 (09:12→12:23)
[2023-07-22] MEDS ORDERED: piperacillin/tazo 3.375gm/50ml 50 ML IV SCH ×2 (10:40→16:00)
[2023-07-22] MEDS ORDERED: ipratropium/albuterol 3ml nebule NEB ONE (11:00)
[2023-07-22 11:22] VITALS: PULSE 114; RESP 14; O2SAT 98
[2023-07-22 11:27] VITALS: PULSE 114; RESP 13; O2SAT 100
[2023-07-22] MEDS ORDERED: magnesium hydroxide 30ml (MOM) UD suspension PO PRN (12:20)
[2023-07-22] MEDS ORDERED: ondansetron/PF 4mg/2ml inj IV PRN (12:20)
[2023-07-22] MEDS ORDERED: acetaminophen 325mg tablet PO PRN ×2 (12:20)
[2023-07-22] MEDS ORDERED: normal saline 1000ml 1,000 ML IV SCH (12:20)
[2023-07-22] MEDS ORDERED: VANCOMYCIN IV ONE (13:15)
[2023-07-22] MEDS ORDERED: cefepime 2g/NS 100ml ADVANTAGE 100 ML IV SCH (13:15)
[2023-07-22] MEDS ORDERED: ringers solution, lactated 1000ml IV soln IV ONE (13:15)
[2023-07-22] MEDS ORDERED: NORMAL SALINE IV ONE (13:15)
[2023-07-22] MEDS ORDERED: vancomycin inj 1,000 MG in normal saline 250ml IV soln 250 ML IV ONE (13:22)
[2023-07-22] MEDS: vancomycin/NS 1 GM ADD-VANTAGE 250 ML IV SCH (13:33)
[2023-07-22 14:34] LABS: ABG BASE EXCESS -4.9 mmol/L (-2.0-2.0); ABG HCO3 16.7 mmol/L (22.0-26.0); ABG OXYGEN SATURATION 97.8 % (94-97); ABG PCO2 (T) 21.6 mmHg (35.0-48.0); ABG PH (T) 7.503 (7.340-7.440); ABG PO2 (T) 92.3 mmHg (75.0-100.0); ALLEN'S TEST Yes; FCOHb 0.6 % (0.0-3.9); FHHb 2.2 % (0.0-5.0); FMetHb 0.2 % (0.0-1.5); PATIENT TEMPERATURE 36.6; TOTAL HEMOGLOBIN 11.4 G/dl (14.0-17.9)
[2023-07-22] MEDS: ringers solution, lacted 1,000 ML IV SCH ×2 (14:49→19:24)
[2023-07-22] MEDS: heparin, porcine 5000 units/ml vial SQ SCH (16:00)
[2023-07-22] MEDS ORDERED: HYDROcodone/acetaminophen 5mg/325mg tablet PO PRN (16:50)
[2023-07-22] MEDS ORDERED: HYDROmorphone 1 mg/ml syringe IV PRN (18:20)
[2023-07-22] MEDS ORDERED: normal saline 1000ML IV soln IVB ONE (19:20)
[2023-07-22] MEDS ORDERED: thiamine 100mg/ml 2ml inj. IM ONE (20:05)
[2023-07-22] MEDS: cefepime 2g/NS 100ml ADVANTAGE 100 ML IV SCH (20:17)
[2023-07-22] MEDS ORDERED: IOHEXOL 12MG/ML oral solution 500 ML BOTTLE PO ONE (20:20)
[2023-07-22 20:23] LABS: ABG BASE EXCESS -16.3 mmol/L (-2.0-2.0); ABG OXYGEN SATURATION 96.3 % (94-97); ABG PCO2 (T) 20.9 mmHg (35.0-48.0); ABG PH (T) 7.251 (7.340-7.440); ABG PO2 (T) 98.1 mmHg (75.0-100.0); ALLEN'S TEST Modified; FCOHb 0.7 % (0.0-3.9); FHHb 3.7 % (0.0-5.0); FMetHb 0.2 % (0.0-1.5); FO2Hb 95.4 % (94-97); MODE RA; TOTAL HEMOGLOBIN 11.1 G/dl (14.0-17.9)
[2023-07-22 20:30] LABS: CREATINE KINASE 4243 U/L (39-308)
[2023-07-22] MEDS ORDERED: diatr meglu/diatrizoate 30ml oral sol.-(3 dose) bottle PO SCH (21:00)
[2023-07-22] MEDS ORDERED: midazolam 100mg in NS 100ml 100 ML IV PRN (21:00)
[2023-07-22 21:01] VITALS: BP 135/98; PULSE 121; RESP 20; O2SAT 70; O2SAT 96
[2023-07-22] MEDS ORDERED: FENTANYL-0.9 % NACL/PF 100 ML IV PRN (21:05)
[2023-07-22 21:21] LABS: ABG BASE EXCESS -17.2 mmol/L (-2.0-2.0); ABG HCO3 9.8 mmol/L (22.0-26.0); ABG OXYGEN SATURATION 99.7 % (94-97); ABG PH (T) 7.176 (7.340-7.440); ABG PO2 (T) 506.7 mmHg (75.0-100.0); ALLEN'S TEST Modified; FCOHb 1.1 % (0.0-3.9); FHHb 0.3 % (0.0-5.0); FMetHb 0.4 % (0.0-1.5); FO2Hb 98.2 % (94-97); MODE prvc; PATIENT TEMPERATURE 36.5; PEEP 5 cm H2O; RESPIRATORY RATE 20 b/min; TIDAL VOLUME 475 mL; TOTAL HEMOGLOBIN 11.5 G/dl (14.0-17.9)
[2023-07-22] MEDS: FENTANYL-0.9 % NACL/PF 100 ML IV PRN (21:32)
[2023-07-22 23:11] VITALS: BP 133/100; PULSE 111; RESP 20; O2SAT 98
[2023-07-23] VITALS (20 sets, daily range): BP systolic 93–127; BP diastolic 60–93; PULSE 89–113; RESP 19–25; O2SAT 96–100
[2023-07-23] MEDS ORDERED: etomidate 2mg/ml inj. ONE (01:00)
[2023-07-23] MEDS ORDERED: rocuronium 10mg/ml inj IV ONE (01:00)
[2023-07-23] MEDS: heparin, porcine 5000 units/ml vial SQ SCH ×4 (02:13→16:02)
[2023-07-23] MEDS: vancomycin/NS 1 GM ADD-VANTAGE 250 ML IV SCH (02:14)
[2023-07-23 02:46] LABS: EOSINOPHILS % (AUTO) 0 % (0-6); MONOCYTES # (AUTO) 1.2 X10'3 (0-0.9)
[2023-07-23 02:48] LABS: BASOPHILS % (AUTO) 0.1 % (0-1); LYMPHOCYTES # (AUTO) 0.9 X10'3 (1.1-4.8); LYMPHOCYTES % (AUTO) 5.6 % (21-51); MEAN PLATELET VOLUME 9.1 FL (7.4-10.4); MONOCYTES % (AUTO) 7.6 % (2-12); NEUTROPHILS # (AUTO) 13.9 X10'3 (1.8-7.7); NEUTROPHILS % (AUTO) 86.7 % (42-75); PLATELET COUNT 211 X10'3 (140-440); WHITE BLOOD COUNT 16.1 X10'3 (4.5-11.0)
[2023-07-23] MEDS ORDERED: pantoprazole 40mg IV 80 MG in normal saline 100ml IV soln 100 ML IV ONE (03:00)
[2023-07-23 03:03] LABS: ABG BASE EXCESS -16.6 mmol/L (-2.0-2.0); ABG HCO3 9.7 mmol/L (22.0-26.0); ABG OXYGEN SATURATION 99.6 % (94-97); ABG PCO2 (T) 24.8 mmHg (35.0-48.0); ABG PH (T) 7.209 (7.340-7.440); ABG PO2 (T) 217.5 mmHg (75.0-100.0); FCOHb 0.6 % (0.0-3.9); FHHb 0.4 % (0.0-5.0); FMetHb 0.4 % (0.0-1.5); FO2Hb 98.6 % (94-97); MODE prvc; PEEP 5 cm H2O; RESPIRATORY RATE 20 b/min; TIDAL VOLUME 475 mL; TOTAL HEMOGLOBIN 11.4 G/dl (14.0-17.9)
[2023-07-23] MEDS ORDERED: pantoprazole 40 MG vial IV ONE ×2 (03:08→03:20)
[2023-07-23 03:18] LABS: HEMATOCRIT 35.3 % (42.0-52.0); HEMOGLOBIN 11.1 g/dl (14.0-17.9); MEAN CORPUSCULAR HEMOGLOBIN 25.3 PG (27.0-31.0); MEAN CORPUSCULAR HGB CONC 31.4 g/dL (33.0-36.5); MEAN CORPUSCULAR VOLUME 80.6 FL (78-98); RED BLOOD COUNT 4.38 X10'6 (4.70-6.10)
[2023-07-23 03:19] LABS: RED CELL DISTRIBUTION WIDTH 19.5 % (11.5-14.5)
[2023-07-23] MEDS: ringers solution, lacted 1,000 ML IV SCH ×5 (03:22→19:49)
[2023-07-23] MEDS ORDERED: dextrose 50%-water 50ml dispensing syringe IV ONE ×3 (03:56→04:05)
[2023-07-23] MEDS ORDERED: ringers solution, lacted 1,000 ML IV STA (04:17)
[2023-07-23] MEDS: dextrose 5%-lactated ringers 1,000 ML IV SCH ×2 (04:20→11:19)
[2023-07-23 05:24] LABS: ALANINE AMINOTRANSFERASE 488 U/L (12-78); ALBUMIN 1.9 G/DL (3.4-5.0); ALKALINE PHOSPHATASE 125 IU/L (46-116); ANION GAP 19 (8-16); ASPARTATE AMINO TRANSFERASE 889 U/L (10-37); BILIRUBIN,TOTAL 6.6 MG/DL (0.1-1.0); BLOOD UREA NITROGEN 32 MG/DL (7-18); BUN/CREATININE RATIO 17.9 (10.0-20.0); CALCIUM 7.8 MG/DL (8.5-10.1); CHLORIDE 99 MMOL/L (99-107); CREATININE 1.79 MG/DL (0.60-1.10); GLUCOSE 202 MG/DL (70-104); SODIUM 134 MMOL/L (135-145); TOTAL CARBON DIOXIDE 15.9 MMOL/L (24-32); eCRCL 43 ML/MIN; eGFR 40 ML/MIN
[2023-07-23 05:31] LABS: HDL CHOLESTEROL 9 MG/DL (35-60); LDL CHOLESTEROL 42 MG/DL (50-100)
[2023-07-23 06:07] LABS: ALBUMIN/GLOBULIN RATIO 0.5 (1.1-1.5); PRO BRAIN NATRIURETIC PEPTIDE > 30000 PG/ML (0-125); TOTAL PROTEIN 5.5 G/DL (6.4-8.2); TRIGLYCERIDES 43 MG/DL (20-135)
[2023-07-23 06:41] LABS: CHOLESTEROL < 50 MG/DL (0-200)
[2023-07-23] MEDS: thiamine 100mg/ml 2ml inj. IV SCH (08:17)
[2023-07-23] MEDS: cefepime 2g/NS 100ml ADVANTAGE 100 ML IV SCH ×2 (08:26→20:40)
[2023-07-23 08:59] LABS: CREATINE KINASE 1243 U/L (39-308)
[2023-07-23] MEDS: sodium bicarbonate (8.4%) inj. 150 MEQ in dextrose 5%-water 1,000 ML IV SCH ×2 (13:11→20:28)
[2023-07-23 16:26] LABS: ALANINE AMINOTRANSFERASE 826 U/L (12-78); ALBUMIN 1.7 G/DL (3.4-5.0); ALKALINE PHOSPHATASE 100 IU/L (46-116); AMYLASE 27 U/L (25-115); ANION GAP 3 (8-16); BILIRUBIN,TOTAL 4.4 MG/DL (0.1-1.0); BLOOD UREA NITROGEN 33 MG/DL (7-18); BUN/CREATININE RATIO 20.2 (10.0-20.0); CALCIUM 7.5 MG/DL (8.5-10.1); CHLORIDE 100 MMOL/L (99-107); CREATININE 1.63 MG/DL (0.60-1.10); GLUCOSE 124 MG/DL (70-104); LIPASE 18 U/L (16-77); POTASSIUM 3.9 MMOL/L (3.5-5.1); SODIUM 132 MMOL/L (135-145); TOTAL CARBON DIOXIDE 29.1 MMOL/L (24-32); eCRCL 47 ML/MIN; eGFR 45 ML/MIN
[2023-07-23 16:29] LABS: ALBUMIN/GLOBULIN RATIO 0.5 (1.1-1.5); ASPARTATE AMINO TRANSFERASE 1686 U/L (10-37); TOTAL PROTEIN 4.8 G/DL (6.4-8.2)
[2023-07-23 18:00] LABS: PLATELET COUNT 168 X10'3 (140-440)
[2023-07-23 18:05] LABS: APTT 43 SECONDS (22-32); D-DIMER 13.27 MG/L FEU (0-0.50); FIBRINOGEN 144 MG/DL (177-424); INR 2.4 INR; PROTHROMBIN TIME 24.7 SECONDS (9.0-12.0)
[2023-07-23] MEDS: FENTANYL-0.9 % NACL/PF 100 ML IV PRN (23:57)
[2023-07-24] VITALS (37 sets, daily range): BP systolic 105–127; BP diastolic 69–95; PULSE 96–119; RESP 8–22; O2SAT 90–100
[2023-07-24] MEDS: heparin, porcine 5000 units/ml vial SQ SCH ×4 (00:01→23:58)
[2023-07-24] MEDS: vancomycin/NS 1 GM ADD-VANTAGE 250 ML IV SCH (01:48)
[2023-07-24 02:42] LABS: BASOPHILS % (AUTO) 0.2 % (0-1); EOSINOPHILS # (AUTO) 0.1 X10'3 (0-0.9); EOSINOPHILS % (AUTO) 1.1 % (0-6); HEMATOCRIT 29.8 % (42.0-52.0); HEMOGLOBIN 9.2 g/dl (14.0-17.9); LYMPHOCYTES # (AUTO) 0.8 X10'3 (1.1-4.8); LYMPHOCYTES % (AUTO) 6.5 % (21-51); MEAN CORPUSCULAR HEMOGLOBIN 24.6 PG (27.0-31.0); MEAN CORPUSCULAR HGB CONC 31.1 g/dL (33.0-36.5); MEAN CORPUSCULAR VOLUME 79.3 FL (78-98); MEAN PLATELET VOLUME 8.6 FL (7.4-10.4); MONOCYTES # (AUTO) 0.6 X10'3 (0-0.9); MONOCYTES % (AUTO) 4.4 % (2-12); NEUTROPHILS # (AUTO) 11.4 X10'3 (1.8-7.7); NEUTROPHILS % (AUTO) 87.8 % (42-75); PLATELET COUNT 173 X10'3 (140-440); RED BLOOD COUNT 3.76 X10'6 (4.70-6.10); RED CELL DISTRIBUTION WIDTH 19.6 % (11.5-14.5)
[2023-07-24 03:11] LABS: ALANINE AMINOTRANSFERASE 928 U/L (12-78); ALBUMIN 1.6 G/DL (3.4-5.0); ALKALINE PHOSPHATASE 121 IU/L (46-116); ANION GAP 6 (8-16); BILIRUBIN,TOTAL 4.4 MG/DL (0.1-1.0); BLOOD UREA NITROGEN 33 MG/DL (7-18); BUN/CREATININE RATIO 19.6 (10.0-20.0); CALCIUM 7.5 MG/DL (8.5-10.1); CHLORIDE 101 MMOL/L (99-107); CREATININE 1.68 MG/DL (0.60-1.10); GLUCOSE 134 MG/DL (70-104); POTASSIUM 3.3 MMOL/L (3.5-5.1); SODIUM 138 MMOL/L (135-145); TOTAL CARBON DIOXIDE 30.7 MMOL/L (24-32); eCRCL 46 ML/MIN; eGFR 43 ML/MIN
[2023-07-24 03:15] LABS: ALBUMIN/GLOBULIN RATIO 0.5 (1.1-1.5); TOTAL PROTEIN 4.8 G/DL (6.4-8.2)
[2023-07-24] MEDS ORDERED: potassium Cl 40MEQ/270ML bag 270 ML IV PRN (03:25)
[2023-07-24] MEDS ORDERED: magnesium 2GM in 50ml NS 50 ML IV PRN (03:25)
[2023-07-24 03:29] LABS: ASPARTATE AMINO TRANSFERASE 1517 U/L (10-37)
[2023-07-24 03:41] LABS: ANISOCYTOSIS 2+; MICROCYTOSIS 1+; PLATELET ESTIMATE NORMAL
[2023-07-24 03:50] LABS: ELLIPTOCYTES FEW; HYPOCHROMASIA 1+; POIKILOCYTOSIS FEW; TARGET CELLS 1+
[2023-07-24] MEDS: sodium bicarbonate (8.4%) inj. 150 MEQ in dextrose 5%-water 1,000 ML IV SCH (03:56)
[2023-07-24] MEDS: cefepime 2g/NS 100ml ADVANTAGE 100 ML IV SCH ×2 (08:01→20:18)
[2023-07-24] MEDS: thiamine 100mg/ml 2ml inj. IV SCH (08:01)
[2023-07-24] MEDS ORDERED: FURO20TA4 PO (10:41)
[2023-07-24] MEDS ORDERED: EMPA10TA PO (10:41)
[2023-07-24] MEDS ORDERED: SPIR25TA5 PO (10:42)
[2023-07-24] MEDS ORDERED: APIX5TAB3 PO (10:46)
[2023-07-24] MEDS ORDERED: ASPI-1264 PO (10:46)
[2023-07-24] MEDS ORDERED: furosemide 40mg/4ml inj IV ONE (11:05)
[2023-07-24] MEDS: ipratropium/albuterol 3ml nebule NEB PRN ×2 (13:13→16:43)
[2023-07-24] MEDS: HYDROmorphone 1 mg/ml syringe IV PRN (18:29)
[2023-07-25] VITALS (25 sets, daily range): BP systolic 104–128; BP diastolic 74–99; PULSE 103–121; RESP 6–24; TEMP 97.9–98.7; O2SAT 92–97
[2023-07-25] MEDS: vancomycin/NS 1 GM ADD-VANTAGE 250 ML IV SCH (02:01)
[2023-07-25 03:37] LABS: BASOPHILS # (AUTO) 0.1 X10'3 (0-0.2); BASOPHILS % (AUTO) 0.6 % (0-1); EOSINOPHILS # (AUTO) 0.1 X10'3 (0-0.9); EOSINOPHILS % (AUTO) 1.2 % (0-6); HEMATOCRIT 30.9 % (42.0-52.0); HEMOGLOBIN 9.5 g/dl (14.0-17.9); LYMPHOCYTES # (AUTO) 0.8 X10'3 (1.1-4.8); LYMPHOCYTES % (AUTO) 6.8 % (21-51); MEAN CORPUSCULAR HEMOGLOBIN 24.5 PG (27.0-31.0); MEAN CORPUSCULAR HGB CONC 30.8 g/dL (33.0-36.5); MEAN CORPUSCULAR VOLUME 79.7 FL (78-98); MEAN PLATELET VOLUME 8.9 FL (7.4-10.4); MONOCYTES # (AUTO) 0.5 X10'3 (0-0.9); MONOCYTES % (AUTO) 3.8 % (2-12); NEUTROPHILS # (AUTO) 10.6 X10'3 (1.8-7.7); NEUTROPHILS % (AUTO) 87.6 % (42-75); PLATELET COUNT 163 X10'3 (140-440); RED BLOOD COUNT 3.88 X10'6 (4.70-6.10); RED CELL DISTRIBUTION WIDTH 20.5 % (11.5-14.5); WHITE BLOOD COUNT 12.1 X10'3 (4.5-11.0)
[2023-07-25 03:56] LABS: ALBUMIN 1.8 G/DL (3.4-5.0); ALKALINE PHOSPHATASE 118 IU/L (46-116); ANION GAP 3 (8-16); BILIRUBIN,TOTAL 5.6 MG/DL (0.1-1.0); BLOOD UREA NITROGEN 31 MG/DL (7-18); BUN/CREATININE RATIO 17.7 (10.0-20.0); CALCIUM 7.7 MG/DL (8.5-10.1); CHLORIDE 103 MMOL/L (99-107); CREATININE 1.75 MG/DL (0.60-1.10); GLUCOSE 145 MG/DL (70-104); MAGNESIUM 1.5 MG/DL (1.5-2.4); POTASSIUM 3.7 MMOL/L (3.5-5.1); SODIUM 140 MMOL/L (135-145); TOTAL CARBON DIOXIDE 34.5 MMOL/L (24-32); eCRCL 44 ML/MIN; eGFR 41 ML/MIN
[2023-07-25 03:57] LABS: ALANINE AMINOTRANSFERASE 1324 U/L (12-78); ALBUMIN/GLOBULIN RATIO 0.5 (1.1-1.5); ASPARTATE AMINO TRANSFERASE 1502 U/L (10-37); TOTAL PROTEIN 5.4 G/DL (6.4-8.2)
[2023-07-25 04:42] LABS: ANISOCYTOSIS 3+; ELLIPTOCYTES 1+; HYPOCHROMASIA 1+; MICROCYTOSIS 1+; PLATELET ESTIMATE NORMAL; POIKILOCYTOSIS 1+; SCHISTOCYTES FEW; TARGET CELLS FEW
[2023-07-25] MEDS: cefepime 2g/NS 100ml ADVANTAGE 100 ML IV SCH (08:19)
[2023-07-25] MEDS: thiamine 100mg/ml 2ml inj. IV SCH (08:20)
[2023-07-25] MEDS: heparin, porcine 5000 units/ml vial SQ SCH ×2 (08:20→16:33)
[2023-07-25] MEDS: pantoprazole 40 MG vial IV SCH (08:20)
[2023-07-25] MEDS ORDERED: HYDROcodone/acetaminophen 5mg/325mg tablet PO PRN (10:00)
[2023-07-25] MEDS ORDERED: cefepime 2g/NS 100ml ADVANTAGE 100 ML IV SCH (12:42)
[2023-07-25] MEDS: ipratropium/albuterol 3ml nebule NEB PRN (16:28)
[2023-07-25] MEDS: HYDROmorphone 1 mg/ml syringe IV PRN (22:14)
[2023-07-26] VITALS (10 sets, daily range): BP systolic 109–124; BP diastolic 64–89; PULSE 61–120; RESP 12–24; TEMP 97.3–99; O2SAT 90–98
[2023-07-26] MEDS ORDERED: VANCOMYCIN LEVEL IV ONE (01:30)
[2023-07-26] MEDS: heparin, porcine 5000 units/ml vial SQ SCH ×3 (01:54→16:52)
[2023-07-26] MEDS: HYDROmorphone 1 mg/ml syringe IV PRN ×5 (01:55→21:19)
[2023-07-26] MEDS: vancomycin/NS 1 GM ADD-VANTAGE 250 ML IV SCH (02:38)
[2023-07-26] MEDS: ipratropium/albuterol 3ml nebule NEB PRN (07:39)
[2023-07-26 08:27] LABS: BASOPHILS # (AUTO) 0.1 X10'3 (0-0.2); BASOPHILS % (AUTO) 0.5 % (0-1); EOSINOPHILS # (AUTO) 0.1 X10'3 (0-0.9); EOSINOPHILS % (AUTO) 0.6 % (0-6); HEMATOCRIT 31.7 % (42.0-52.0); HEMOGLOBIN 9.7 g/dl (14.0-17.9); LYMPHOCYTES # (AUTO) 1.3 X10'3 (1.1-4.8); LYMPHOCYTES % (AUTO) 8.9 % (21-51); MEAN CORPUSCULAR HEMOGLOBIN 24.3 PG (27.0-31.0); MEAN CORPUSCULAR HGB CONC 30.7 g/dL (33.0-36.5); MEAN PLATELET VOLUME 8.8 FL (7.4-10.4); MONOCYTES % (AUTO) 7.2 % (2-12); NEUTROPHILS # (AUTO) 11.7 X10'3 (1.8-7.7); NEUTROPHILS % (AUTO) 82.8 % (42-75); PLATELET COUNT 157 X10'3 (140-440); RED BLOOD COUNT 4.01 X10'6 (4.70-6.10); RED CELL DISTRIBUTION WIDTH 20.1 % (11.5-14.5); WHITE BLOOD COUNT 14.1 X10'3 (4.5-11.0)
[2023-07-26] MEDS: thiamine 100mg/ml 2ml inj. IV SCH (08:38)
[2023-07-26] MEDS: pantoprazole 40 MG vial IV SCH (08:38)
[2023-07-26 09:05] LABS: ALANINE AMINOTRANSFERASE 1240 U/L (12-78); ALBUMIN 1.9 G/DL (3.4-5.0); ALBUMIN/GLOBULIN RATIO 0.4 (1.1-1.5); ALKALINE PHOSPHATASE 168 IU/L (46-116); ANION GAP 9 (8-16); ASPARTATE AMINO TRANSFERASE 911 U/L (10-37); BILIRUBIN,DIRECT 4.1 MG/DL (0-0.3); BILIRUBIN,TOTAL 5.1 MG/DL (0.1-1.0); BLOOD UREA NITROGEN 33 MG/DL (7-18); BUN/CREATININE RATIO 23.4 (10.0-20.0); CALCIUM 7.8 MG/DL (8.5-10.1); CHLORIDE 98 MMOL/L (99-107); CREATININE 1.41 MG/DL (0.60-1.10); GLUCOSE 126 MG/DL (70-104); MAGNESIUM 1.5 MG/DL (1.5-2.4); POTASSIUM 4.1 MMOL/L (3.5-5.1); SODIUM 135 MMOL/L (135-145); TOTAL CARBON DIOXIDE 28.1 MMOL/L (24-32); TOTAL PROTEIN 6.3 G/DL (6.4-8.2); eCRCL 55 ML/MIN; eGFR 53 ML/MIN
[2023-07-26] MEDS: HYDROcodone/acetaminophen 5mg/325mg tablet PO PRN ×2 (11:33→16:58)
[2023-07-26] MEDS: ringers solution, lacted 1,000 ML IV SCH (12:20)
[2023-07-27] MEDS: heparin, porcine 5000 units/ml vial SQ SCH
[2023-07-27] MEDS: ringers solution, lacted 1,000 ML IV SCH (01:40)
[2023-07-27 02:00] VITALS: BP 115/85; PULSE 112; RESP 18; TEMP 98.2; O2SAT 94
[2023-07-27] MEDS ORDERED: VANCOmycin 1250MG/NS 250ml Bag 250 ML IV SCH (02:00)
[2023-07-27] MEDS: HYDROmorphone 1 mg/ml syringe IV PRN (04:15)
[2023-07-27 05:15] VITALS: RESP 18
[2023-07-30] MEDS ORDERED: VANCOMYCIN LEVEL IV ONE (01:30)
== END 2023-07-27 09:10 | disposition left against medical advice (07) | DRG 720 ==
LOC: ER 01:10 → ED HOLD 12:20 → CICU 2S 07-23 13:43 → PCU 3S 07-25 17:03
PROVIDERS: ADMIT Internal Medicine Critical Care Medicine; ATTEND Internal Medicine Critical Care Medicine
PROC: 0BH17EZ Insertion of Endotracheal Airway into Trachea, Via Natural or Artificial Opening (ICD-10-PCS; principal; 2023-07-23)
PROC: 5A1935Z Respiratory Ventilation, Less than 24 Consecutive Hours (ICD-10-PCS; 2023-07-23)
DX: A41.9 Sepsis, unspecified organism (principal); N17.0 Acute kidney failure with tubular necrosis; J96.01 Acute respiratory failure with hypoxia; R65.21 Severe sepsis with septic shock; J69.0 Pneumonitis due to inhalation of food and vomit; I96 Gangrene, not elsewhere classified; I13.0 Hypertensive heart and chronic kidney disease with heart failure and stage 1 through stage 4 chronic kidney disease, or unspecified chronic kidney disease; E87.20 Acidosis, unspecified; I50.20 Unspecified systolic (congestive) heart failure; I27.20 Pulmonary hypertension, unspecified; L03.115 Cellulitis of right lower limb; Z53.21 Procedure and treatment not carried out due to patient leaving prior to being seen by health care provider; J44.9 Chronic obstructive pulmonary disease, unspecified; I08.1 Rheumatic disorders of both mitral and tricuspid valves; N18.9 Chronic kidney disease, unspecified; F17.210 Nicotine dependence, cigarettes, uncomplicated; F19.10 Other psychoactive substance abuse, uncomplicated; E16.2 Hypoglycemia, unspecified; M62.82 Rhabdomyolysis; R74.01 Elevation of levels of liver transaminase levels; F41.9 Anxiety disorder, unspecified; Z20.822 Contact with and (suspected) exposure to COVID-19; Z79.01 Long term (current) use of anticoagulants; Z79.82 Long term (current) use of aspirin; Z79.899 Other long term (current) drug therapy; Z88.0 Allergy status to penicillin; Z88.5 Allergy status to narcotic agent; Z79.84 Long term (current) use of oral hypoglycemic drugs; Z59.00 Homelessness unspecified; Z82.49 Family history of ischemic heart disease and other diseases of the circulatory system
CPT/HCPCS: 36415; 36600; 70450; 71045; 71250; 73700; 74176; 80053; 80061; 80202; 80305; 81001; 82150; 82248; 82550; 82803; 82948; 83605; 83690; 83735; 83880; 84145; 84484; 85008; 85018; 85025; 85379; 85384; 85610; 85651; 85730; 86705; 86709; 86885; 86900; 86901; 87040; 87077; 87081; 87340; 87811; 93005; 93308; 93922; 93925; 94002; 94003; 94640; 94760; 94799; 97161; 97530; 99285; A4314; A4615; A4620; A4649; A6213; A6250; A6253; A6258; A6449; C1751; C1758; C9113; G0378; J0692; J1170; J1200; J1644; J1940; J2543; J3010; J3370; J3411; J3480; J3490; J7030; J7040; J7070; J7120; J7121

== ENCOUNTER 2023-08-06 11:00 | Inpatient (IN) | payer MEDICAID ==
[2023-08-06] VITALS (14 sets, daily range): BP systolic 89–158; BP diastolic 50–114; PULSE 109–119; RESP 16–28; O2SAT 77–88
[~2023-08-06] VITALS: Ht 177.8 cm; Wt 76.0 kg
[~2023-08-06 11:00] MED LIST changes: -CARV3.123 PO; -CEPH-585 PO; -FURO-150 PO; +FURO20TA4 PO; -FURO40TA4 PO; -HYDR-3965 PO
[2023-08-06] MEDS ORDERED: normal saline 1000ML IV soln IV ONE (11:05)
[2023-08-06] MEDS ORDERED: dexamethasone sod phosphate 10mg/ml inj IV STA (11:05)
[2023-08-06] MEDS ORDERED: dextrose 50%-water 50ml dispensing syringe IV ONE ×4 (11:05→17:55)
[2023-08-06] MEDS ORDERED: levoFLOXACIN-Levaquin 750MG/D5 150 ML IV STA (11:23)
[2023-08-06 11:56] LABS: BILIRUBIN,URINE SMALL (Neg); CLARITY,URINE SLIGHTLY CLOUDY (Clear); COLOR,URINE YELLOW (Yellow); GLUCOSE, URINE NEGATIVE (Neg); KETONES,URINE NEGATIVE (Neg); LEUKOCYTE ESTERASE ,URINE NEGATIVE (Neg); NITRITES, URINE NEGATIVE (Neg); OCCULT BLOOD,URINE NEGATIVE (Neg); PH,URINE 5.5 (4.8-8.0); PROTEIN,URINE 30 mg/dl (Neg)
[2023-08-06 11:58] LABS: UA COLLECTION TYPE FOLEY CATH
[2023-08-06] MEDS ORDERED: vancomycin/NS 1 GM ADD-VANTAGE 250 ML X 1 DOSE IV ONE ×2 (12:05→15:55)
[2023-08-06 12:07] LABS: BASOPHILS # (AUTO) 0.1 X10'3 (0-0.2); BASOPHILS % (AUTO) 0.2 % (0-1); EOSINOPHILS % (AUTO) 0 % (0-6); LYMPHOCYTES # (AUTO) 1.2 X10'3 (1.1-4.8); MEAN PLATELET VOLUME 8.8 FL (7.4-10.4); MONOCYTES # (AUTO) 1.6 X10'3 (0-0.9); MONOCYTES % (AUTO) 6.6 % (2-12); NEUTROPHILS # (AUTO) 21.7 X10'3 (1.8-7.7); NEUTROPHILS % (AUTO) 88.2 % (42-75); PLATELET COUNT 277 X10'3 (140-440); RED CELL DISTRIBUTION WIDTH 23.4 % (11.5-14.5); WHITE BLOOD COUNT 24.6 X10'3 (4.5-11.0)
[2023-08-06 12:08] LABS: HYALINE CASTS 0-3 /LPF (NEGATIVE); URINE AMPHETAMINE SCREEN POSITIVE (Neg); URINE BARBITUATE SCREEN NEGATIVE (Neg); URINE BENZODIAZEPINES SCREEN NEGATIVE (Neg); URINE CANNABINOID SCREEN POSITIVE (Neg); URINE COCAINE SCREEN NEGATIVE (Neg); URINE METHADONE SCREEN NEGATIVE (Neg); URINE OPIATE SCREEN NEGATIVE (Neg); URINE PHENCYCLIDINE SCREEN NEGATIVE (Neg)
[2023-08-06] MEDS ORDERED: propofol 1000mg/100ml bottle 100 ML IV ONE (12:08)
[2023-08-06 12:09] LABS: RBC,URINE NONE SEEN /HPF (0-2); WBC,URINE 0-4 /HPF (0-4)
[2023-08-06 12:10] LABS: BACTERIA,URINE FEW /HPF (Neg); CELLULAR CAST 0-4 /LPF (NEGATIVE); SQUAMOUS EPITHELIAL CELL,UR FEW /LPF (FEW)
[2023-08-06 12:15] LABS: INR 2.9 INR; PROTHROMBIN TIME 29.6 SECONDS (9.0-12.0)
[2023-08-06 12:31] LABS: HEMATOCRIT 30.5 % (42.0-52.0); HEMOGLOBIN 8.8 g/dl (14.0-17.9); MEAN CORPUSCULAR HEMOGLOBIN 24.4 PG (27.0-31.0); MEAN CORPUSCULAR HGB CONC 28.7 g/dL (33.0-36.5); MEAN CORPUSCULAR VOLUME 85.1 FL (78-98); RED BLOOD COUNT 3.59 X10'6 (4.70-6.10)
[2023-08-06 12:43] LABS: ALBUMIN 1.7 G/DL (3.4-5.0); ALBUMIN/GLOBULIN RATIO 0.4 (1.1-1.5); ALKALINE PHOSPHATASE 185 IU/L (46-116); ASPARTATE AMINO TRANSFERASE 56 U/L (10-37); BLOOD UREA NITROGEN 44 MG/DL (7-18); CALCIUM 7.3 MG/DL (8.5-10.1); CHLORIDE 101 MMOL/L (99-107); CREATINE KINASE 155 U/L (39-308); GLUCOSE 242 MG/DL (70-104); MAGNESIUM 1.9 MG/DL (1.5-2.4); POTASSIUM 3.5 MMOL/L (3.5-5.1); SODIUM 139 MMOL/L (135-145); TOTAL PROTEIN 6.2 G/DL (6.4-8.2); eCRCL 46 ML/MIN; eGFR 36 ML/MIN
[2023-08-06 12:53] LABS: ABG BASE EXCESS -25.5 mmol/L (-2.0-2.0); ABG HCO3 5.7 mmol/L (22.0-26.0); ABG OXYGEN SATURATION 99.7 % (94-97); ABG PCO2 (T) 24.7 mmHg (35.0-48.0); ABG PH (T) 6.955 (7.340-7.440); ABG PO2 (T) 393.8 mmHg (75.0-100.0); FCOHb 0.4 % (0.0-3.9); FHHb 0.3 % (0.0-5.0); FMetHb 0.6 % (0.0-1.5); FO2Hb 98.7 % (94-97); MODE VENT - AC; PATIENT TEMPERATURE 33.5; PEEP 5 cm H2O; RESPIRATORY RATE 18 b/min; TIDAL VOLUME 475 mL; TOTAL HEMOGLOBIN 9.7 G/dl (14.0-17.9)
[2023-08-06] MEDS ORDERED: sodium bicarbonate (8.4%) inj. 100 MEQ in dextrose 5%-water 1,000 ML IV ONE (12:55)
[2023-08-06] MEDS ORDERED: normal saline 1000ML IV soln IVB ONE (13:00)
[2023-08-06 13:01] LABS: ALANINE AMINOTRANSFERASE 131 U/L (12-78); ANION GAP 28 (8-16)
[2023-08-06 13:03] LABS: TOTAL CARBON DIOXIDE 9.9 MMOL/L (24-32)
[2023-08-06 13:08] LABS: LARGE PLATELETS FEW; LYMPHOCYTES % (MANUAL) 3 % (21-51); MONOCYTES % (MANUAL) 3 % (2-12); NEUTROPHILS % (MANUAL) 92 % (42-75); PLATELET ESTIMATE NORMAL; TOTAL CELLS COUNTED 100
[2023-08-06 13:09] LABS: ANISOCYTOSIS 3+; GIANT PLATELET FEW; MICROCYTOSIS 1+; TARGET CELLS FEW
[2023-08-06 13:10] LABS: ELLIPTOCYTES FEW; SCHISTOCYTES FEW
[2023-08-06] MEDS ORDERED: sodium bicarbonate (8.4%) inj. 100 MEQ in normal saline 1000ml 1,000 ML IV ONE (13:15)
[2023-08-06] MEDS ORDERED: sodium bicarbonate (8.4%) inj. 100 MEQ in sodium chloride 0.45% 1,000 ML IV ONE (13:19)
[2023-08-06] MEDS ORDERED: ALPR-624 PO (13:58)
[2023-08-06] MEDS ORDERED: etomidate 2mg/ml inj. ONE (14:00)
[2023-08-06] MEDS ORDERED: rocuronium 10mg/ml inj IV ONE (14:00)
[2023-08-06] MEDS ORDERED: IBUP-2766 PO (14:01)
[2023-08-06] MEDS ORDERED: ALB0.5UD NEB (14:01)
[2023-08-06] MEDS ORDERED: ASPI-1264 PO (14:07)
[2023-08-06] MEDS ORDERED: APIX5TAB3 PO (14:07)
[2023-08-06] MEDS ORDERED: FURO20TA4 PO (14:07)
[2023-08-06] MEDS ORDERED: SPIR25TA5 PO (14:07)
[2023-08-06] MEDS ORDERED: EMPA10TA PO (14:07)
[2023-08-06] MEDS ORDERED: magnesium 4gm in 100ml NS 100 ML IV PRN (14:45)
[2023-08-06] MEDS ORDERED: FENTANYL-0.9 % NACL/PF 100 ML IV PRN (14:45)
[2023-08-06] MEDS ORDERED: magnesium 2GM in 50ml NS 50 ML IV PRN (14:45)
[2023-08-06] MEDS ORDERED: magnesium Cl slow-release 64mg tablet PO PRN (14:45)
[2023-08-06] MEDS ORDERED: potassium Cl 20 mEq SR tablet PO PRN ×2 (14:45)
[2023-08-06] MEDS ORDERED: potassium Cl 40MEQ/1/2NS 520ml 520 ML IV PRN (14:45)
[2023-08-06] MEDS ORDERED: acetaminophen 325mg tablet PO PRN (14:45)
[2023-08-06] MEDS ORDERED: magnesium hydroxide 30ml (MOM) UD suspension PO PRN (14:45)
[2023-08-06] MEDS ORDERED: mag hydrox/Alum hydrox/simeth 30ml oral suspension PO PRN (14:45)
[2023-08-06] MEDS ORDERED: ondansetron/PF 4mg/2ml inj IV PRN (14:45)
[2023-08-06] MEDS ORDERED: ringers solution, lacted 1,000 ML IV ONE (15:15)
[2023-08-06 15:32] LABS: ABG BASE EXCESS -22.9 mmol/L (-2.0-2.0); ABG HCO3 7.5 mmol/L (22.0-26.0); ABG OXYGEN SATURATION 98.1 % (94-97); ABG PCO2 (T) 31.6 mmHg (35.0-48.0); ABG PH (T) 6.987 (7.340-7.440); ABG PO2 (T) 149.6 mmHg (75.0-100.0); FCOHb 0.2 % (0.0-3.9); FHHb 1.9 % (0.0-5.0); FMetHb 0.5 % (0.0-1.5); FO2Hb 97.4 % (94-97); MODE VENT - AC; PEEP 5 cm H2O; RESPIRATORY RATE 20 b/min; TIDAL VOLUME 475 mL; TOTAL HEMOGLOBIN 9.9 G/dl (14.0-17.9)
[2023-08-06] MEDS: FENTANYL-0.9 % NACL/PF 100 ML IV PRN (15:33)
[2023-08-06] MEDS: cefepime 1GM/NS ADD-VANTAGE 100 ML IV SCH (16:43)
[2023-08-06] MEDS: propofol 1000mg/100ml bottle 100 ML IV SCH (16:44)
[2023-08-06] MEDS: sodium bicarbonate 1meq/ml inj 150 ML in dextrose 5%-water 1,000 ML IV SCH (16:45)
[2023-08-06 17:18] LABS: ABG HCO3 7.8 mmol/L (22.0-26.0); ABG OXYGEN SATURATION 97.4 % (94-97); ABG PCO2 (T) 30.7 mmHg (35.0-48.0); ABG PH (T) 7.016 (7.340-7.440); ABG PO2 (T) 125.8 mmHg (75.0-100.0); FCOHb 0.5 % (0.0-3.9); FHHb 2.6 % (0.0-5.0); FMetHb 0.1 % (0.0-1.5); FO2Hb 96.8 % (94-97); MODE VENT - AC; PATIENT TEMPERATURE 36.4; PEEP 5 cm H2O; RESPIRATORY RATE 18 b/min; TIDAL VOLUME 475 mL; TOTAL HEMOGLOBIN 9.9 G/dl (14.0-17.9)
[2023-08-06] MEDS ORDERED: dextrose 50%-water 250 ML IV SCH (17:55)
[2023-08-06] MEDS: NORepinephrine 8mg/ 250ml NS 250 ML IV SCH (18:58)
[2023-08-06 19:57] LABS: ALANINE AMINOTRANSFERASE 158 U/L (12-78); ALBUMIN 1.5 G/DL (3.4-5.0); ALBUMIN/GLOBULIN RATIO 0.3 (1.1-1.5); ALKALINE PHOSPHATASE 173 IU/L (46-116); ANION GAP 29 (8-16); ASPARTATE AMINO TRANSFERASE 237 U/L (10-37); BILIRUBIN,TOTAL 3.3 MG/DL (0.1-1.0); BLOOD UREA NITROGEN 44 MG/DL (7-18); BUN/CREATININE RATIO 20.9 (10.0-20.0); CALCIUM 7.2 MG/DL (8.5-10.1); CHLORIDE 99 MMOL/L (99-107); CREATININE 2.11 MG/DL (0.60-1.10); POTASSIUM 4.2 MMOL/L (3.5-5.1); SODIUM 138 MMOL/L (135-145); TOTAL PROTEIN 6.1 G/DL (6.4-8.2); eCRCL 43 ML/MIN; eGFR 33 ML/MIN
[2023-08-06] MEDS: K and/or MAG REPLACEMENT MC SCH (20:00)
[2023-08-06] MEDS: docusate sod 100mg capsule PO SCH (20:00)
[2023-08-06 20:06] LABS: GLUCOSE 105 MG/DL (70-104)
[2023-08-06 20:09] LABS: TOTAL CARBON DIOXIDE 9.9 MMOL/L (24-32)
[2023-08-07] VITALS (35 sets, daily range): BP systolic 90–121; BP diastolic 60–88; PULSE 93–122; RESP 20–22; O2SAT 85–98
[2023-08-07] MEDS: cefepime 1GM/NS ADD-VANTAGE 100 ML IV SCH ×3 (00:09→15:41)
[2023-08-07] MEDS: FENTANYL-0.9 % NACL/PF 100 ML IV PRN ×2 (02:02→13:11)
[2023-08-07] MEDS: NORepinephrine 8mg/ 250ml NS 250 ML IV SCH ×3 (02:02→22:08)
[2023-08-07 02:37] LABS: EOSINOPHILS % (AUTO) 0.1 % (0-6); NEUTROPHILS % (AUTO) 90.9 % (42-75)
[2023-08-07 02:38] LABS: BASOPHILS # (AUTO) 0.1 X10'3 (0-0.2); BASOPHILS % (AUTO) 0.2 % (0-1); LYMPHOCYTES % (AUTO) 5.1 % (21-51); MEAN PLATELET VOLUME 8.8 FL (7.4-10.4); MONOCYTES # (AUTO) 1.5 X10'3 (0-0.9); MONOCYTES % (AUTO) 3.7 % (2-12); PLATELET COUNT 272 X10'3 (140-440)
[2023-08-07] MEDS: sodium bicarbonate 1meq/ml inj 150 ML in dextrose 5%-water 1,000 ML IV SCH ×3 (02:51→21:48)
[2023-08-07 03:00] LABS: ALANINE AMINOTRANSFERASE 359 U/L (12-78); ALBUMIN 1.7 G/DL (3.4-5.0); ALBUMIN/GLOBULIN RATIO 0.4 (1.1-1.5); ALKALINE PHOSPHATASE 197 IU/L (46-116); ANION GAP 24 (8-16); ASPARTATE AMINO TRANSFERASE 960 U/L (10-37); BILIRUBIN,TOTAL 3.6 MG/DL (0.1-1.0); BLOOD UREA NITROGEN 50 MG/DL (7-18); BUN/CREATININE RATIO 20.7 (10.0-20.0); CALCIUM 7.2 MG/DL (8.5-10.1); CHLORIDE 98 MMOL/L (99-107); CREATININE 2.42 MG/DL (0.60-1.10); POTASSIUM 4.5 MMOL/L (3.5-5.1); SODIUM 137 MMOL/L (135-145); TOTAL CARBON DIOXIDE 15.2 MMOL/L (24-32); TOTAL PROTEIN 6.5 G/DL (6.4-8.2); eCRCL 38 ML/MIN; eGFR 29 ML/MIN
[2023-08-07 03:08] LABS: GLUCOSE 158 MG/DL (70-104)
[2023-08-07 03:16] LABS: WHITE BLOOD COUNT 39.7 X10'3 (4.5-11.0)
[2023-08-07 03:19] LABS: HEMATOCRIT 30.4 % (42.0-52.0); HEMOGLOBIN 9.2 g/dl (14.0-17.9); MEAN CORPUSCULAR HEMOGLOBIN 24.6 PG (27.0-31.0); MEAN CORPUSCULAR HGB CONC 30.2 g/dL (33.0-36.5); MEAN CORPUSCULAR VOLUME 81.3 FL (78-98); RED BLOOD COUNT 3.74 X10'6 (4.70-6.10); RED CELL DISTRIBUTION WIDTH 21.9 % (11.5-14.5)
[2023-08-07 03:44] LABS: TOTAL CELLS COUNTED 100
[2023-08-07 03:46] LABS: ANISOCYTOSIS 3+; PLATELET ESTIMATE NORMAL
[2023-08-07 03:50] LABS: ELLIPTOCYTES FEW; HYPOCHROMASIA 1+; POIKILOCYTOSIS FEW
[2023-08-07 03:51] LABS: LARGE PLATELETS FEW
[2023-08-07 04:12] LABS: ABG BASE EXCESS -10.8 mmol/L (-2.0-2.0); ABG HCO3 15.9 mmol/L (22.0-26.0); ABG OXYGEN SATURATION 93.5 % (94-97); ABG PCO2 (T) 40.2 mmHg (35.0-48.0); ABG PH (T) 7.222 (7.340-7.440); ABG PO2 (T) 83.3 mmHg (75.0-100.0); FCOHb 0.7 % (0.0-3.9); FHHb 6.4 % (0.0-5.0); FMetHb 0.1 % (0.0-1.5); FO2Hb 92.8 % (94-97); MODE AC PRVC; PATIENT TEMPERATURE 37.9; PEEP 5 cm H2O; RESPIRATORY RATE 20 b/min; TIDAL VOLUME 450 mL; TOTAL HEMOGLOBIN 10.1 G/dl (14.0-17.9)
[2023-08-07] MEDS ORDERED: CARV3.123 PO (07:01)
[2023-08-07] MEDS: propofol 1000mg/100ml bottle 100 ML IV SCH (07:54)
[2023-08-07] MEDS: pantoprazole 40 MG vial IV SCH ×2 (07:55→20:53)
[2023-08-07] MEDS ORDERED: pantoprazole 40MG/NS 100ML BAG 100 ML IV SCH (08:00)
[2023-08-07] MEDS: K and/or MAG REPLACEMENT MC SCH ×2 (08:00→20:00)
[2023-08-07] MEDS: docusate sod 100mg capsule PO SCH ×2 (08:00→20:00)
[2023-08-07] MEDS ORDERED: albumin (human) 25% 100ml IV 400 ML IV ONE (12:15)
[2023-08-07] MEDS ORDERED: ringers solution, lacted 1,000 ML IV ONE (12:25)
[2023-08-07] MEDS: albumin (Human) 5% 250ml 250 ML IV SCH ×3 (14:20→21:49)
[2023-08-07] MEDS ORDERED: glucagon, human recombinant 1mg kit SUBCUT PRN (14:25)
[2023-08-07] MEDS ORDERED: DEXTROSE 15 GM of carb/4 tabs (each vial/BOTTLE has 4 tablets) PO PRN ×2 (14:25)
[2023-08-07] MEDS ORDERED: MESSAGE TO PHARMACY PO ONE (14:25)
[2023-08-07] MEDS ORDERED: dextrose 50%-water 50ml dispensing syringe IV PRN ×2 (14:25)
[2023-08-07] MEDS ORDERED: vancomycin/NS 1 GM ADD-VANTAGE 250 ML X 1 DOSE IV SCH (16:00)
[2023-08-07] MEDS: mineral oil/petrolatum ophthal oint EACHEYE SCH (20:53)
[2023-08-07] MEDS: insulin Lispro (HumaLOG) vial - multi-dose SQ SCH (20:55)
[2023-08-07] MEDS ORDERED: insulin glargine (Lantus) pen - multi-dose SQ SCH (21:00)
[2023-08-08] VITALS (29 sets, daily range): BP systolic 87–123; BP diastolic 51–88; PULSE 84–120; RESP 20–21; TEMP 99.5–99.6; O2SAT 87–100
[2023-08-08] MEDS: cefepime 1GM/NS ADD-VANTAGE 100 ML IV SCH (00:06)
[2023-08-08] MEDS: propofol 1000mg/100ml bottle 100 ML IV SCH ×2 (00:08→16:17)
[2023-08-08] MEDS: FENTANYL-0.9 % NACL/PF 100 ML IV PRN ×2 (00:10→11:06)
[2023-08-08] MEDS: albumin (Human) 5% 250ml 250 ML IV SCH ×5 (01:08→12:35)
[2023-08-08] MEDS: mineral oil/petrolatum ophthal oint EACHEYE SCH ×3 (02:18→14:43)
[2023-08-08] MEDS: insulin Lispro (HumaLOG) vial - multi-dose SQ SCH ×2 (02:19→08:19)
[2023-08-08 02:53] LABS: RED CELL DISTRIBUTION WIDTH 21.8 % (11.5-14.5); WHITE BLOOD COUNT 19.8 X10'3 (4.5-11.0)
[2023-08-08 02:55] LABS: BASOPHILS % (AUTO) 0.1 % (0-1); EOSINOPHILS % (AUTO) 0.1 % (0-6); HEMATOCRIT 22.3 % (42.0-52.0); LYMPHOCYTES # (AUTO) 0.7 X10'3 (1.1-4.8); LYMPHOCYTES % (AUTO) 3.4 % (21-51); MEAN CORPUSCULAR HEMOGLOBIN 24.2 PG (27.0-31.0); MEAN CORPUSCULAR HGB CONC 30.9 g/dL (33.0-36.5); MEAN CORPUSCULAR VOLUME 78.4 FL (78-98); MONOCYTES # (AUTO) 1.4 X10'3 (0-0.9); MONOCYTES % (AUTO) 7.1 % (2-12); NEUTROPHILS # (AUTO) 17.7 X10'3 (1.8-7.7); NEUTROPHILS % (AUTO) 89.3 % (42-75); PLATELET COUNT 168 X10'3 (140-440); RED BLOOD COUNT 2.85 X10'6 (4.70-6.10)
[2023-08-08 03:08] LABS: ALANINE AMINOTRANSFERASE 339 U/L (12-78); ALBUMIN 3.1 G/DL (3.4-5.0); ALBUMIN/GLOBULIN RATIO 1.1 (1.1-1.5); ALKALINE PHOSPHATASE 113 IU/L (46-116); ANION GAP 15 (8-16); ASPARTATE AMINO TRANSFERASE 871 U/L (10-37); BILIRUBIN,TOTAL 3.3 MG/DL (0.1-1.0); BLOOD UREA NITROGEN 71 MG/DL (7-18); CALCIUM 6.2 MG/DL (8.5-10.1); CHLORIDE 97 MMOL/L (99-107); CREATININE 2.84 MG/DL (0.60-1.10); GLUCOSE 154 MG/DL (70-104); POTASSIUM 4.2 MMOL/L (3.5-5.1); SODIUM 137 MMOL/L (135-145); TOTAL CARBON DIOXIDE 24.6 MMOL/L (24-32); TOTAL PROTEIN 5.9 G/DL (6.4-8.2); eCRCL 32 ML/MIN; eGFR 24 ML/MIN
[2023-08-08 03:09] LABS: ABG BASE EXCESS -0.5 mmol/L (-2.0-2.0); ABG HCO3 23.4 mmol/L (22.0-26.0); ABG OXYGEN SATURATION 99.5 % (94-97); ABG PH (T) 7.434 (7.340-7.440); ABG PO2 (T) 173.5 mmHg (75.0-100.0); FHHb 0.5 % (0.0-5.0); FMetHb 0.3 % (0.0-1.5); FO2Hb 98.2 % (94-97); MODE ac/prvc; PATIENT TEMPERATURE 37.5; PEEP 5 cm H2O; RESPIRATORY RATE 20 b/min; TIDAL VOLUME 450 mL; TOTAL HEMOGLOBIN 7.6 G/dl (14.0-17.9)
[2023-08-08 03:25] LABS: HEMOGLOBIN 6.9 g/dl (14.0-17.9)
[2023-08-08 05:11] LABS: NUCLEATED RED BLOOD CELLS 2 /100WBC (0-0); TOTAL CELLS COUNTED 100
[2023-08-08 05:12] LABS: ANISOCYTOSIS 3+; MICROCYTOSIS 1+; PLATELET ESTIMATE NORMAL
[2023-08-08 05:15] LABS: HYPOCHROMASIA 1+; POIKILOCYTOSIS FEW; TARGET CELLS FEW
[2023-08-08] MEDS: sodium bicarbonate 1meq/ml inj 150 ML in dextrose 5%-water 1,000 ML IV SCH (06:22)
[2023-08-08 07:55] LABS: MAGNESIUM 1.9 MG/DL (1.5-2.4)
[2023-08-08] MEDS: K and/or MAG REPLACEMENT MC SCH (08:00)
[2023-08-08] MEDS: docusate sod 100mg capsule PO SCH (08:00)
[2023-08-08] MEDS ORDERED: cefepime 1GM/NS ADD-VANTAGE 100 ML IV SCH (08:00)
[2023-08-08] MEDS: pantoprazole 40 MG vial IV SCH (08:13)
[2023-08-08] MEDS ORDERED: ringers solution, lacted 1,000 ML IV SCH (11:20)
[2023-08-08] MEDS ORDERED: VANCOMYCIN 750MG IV in NS 250 ML IV SCH (16:00)
[2023-08-09] MEDS ORDERED: VANCOMYCIN LEVEL IV ONE (15:30)
[2023-08-11] MEDS ORDERED: VANCOMYCIN LEVEL IV ONE (15:30)
== END 2023-08-08 20:03 | DRG 720 ==
LOC: ER 11:01 → ED HOLD 14:58 → CICU 2S 16:00
PROVIDERS: ADMIT Internal Medicine Critical Care Medicine; ATTEND Internal Medicine Critical Care Medicine
PROC: 5A1945Z Respiratory Ventilation, 24-96 Consecutive Hours (ICD-10-PCS; principal; 2023-08-06)
PROC: 0BH17EZ Insertion of Endotracheal Airway into Trachea, Via Natural or Artificial Opening (ICD-10-PCS; 2023-08-06)
PROC: 30233N1 Transfusion of Nonautologous Red Blood Cells into Peripheral Vein, Percutaneous Approach (ICD-10-PCS; 2023-08-08)
DX: A41.9 Sepsis, unspecified organism (principal); K72.00 Acute and subacute hepatic failure without coma; G93.40 Encephalopathy, unspecified; E87.20 Acidosis, unspecified; I13.0 Hypertensive heart and chronic kidney disease with heart failure and stage 1 through stage 4 chronic kidney disease, or unspecified chronic kidney disease; I96 Gangrene, not elsewhere classified; I42.9 Cardiomyopathy, unspecified; N17.9 Acute kidney failure, unspecified; J44.0 Chronic obstructive pulmonary disease with (acute) lower respiratory infection; I50.9 Heart failure, unspecified; Z20.822 Contact with and (suspected) exposure to COVID-19; T68.XXXA Hypothermia, initial encounter; E16.2 Hypoglycemia, unspecified; F15.90 Other stimulant use, unspecified, uncomplicated; F17.210 Nicotine dependence, cigarettes, uncomplicated; Z66 Do not resuscitate; N18.9 Chronic kidney disease, unspecified; E80.6 Other disorders of bilirubin metabolism; L03.116 Cellulitis of left lower limb; L03.115 Cellulitis of right lower limb; Z53.29 Procedure and treatment not carried out because of patient's decision for other reasons; Z56.0 Unemployment, unspecified; Z59.00 Homelessness unspecified; Z51.5 Encounter for palliative care; Z82.3 Family history of stroke; Z82.49 Family history of ischemic heart disease and other diseases of the circulatory system; Z88.0 Allergy status to penicillin; X31.XXXA Exposure to excessive natural cold, initial encounter; Z89.512 Acquired absence of left leg below knee; Z89.511 Acquired absence of right leg below knee; Z88.5 Allergy status to narcotic agent; Z88.1 Allergy status to other antibiotic agents; Z88.6 Allergy status to analgesic agent; Z88.8 Allergy status to other drugs, medicaments and biological substances
CPT/HCPCS: 36415; 36430; 36600; 71045; 80053; 80305; 81001; 82550; 82803; 82948; 83605; 83735; 84145; 85007; 85008; 85018; 85025; 85610; 86885; 86900; 86901; 86920; 87040; 87070; 87077; 87081; 87186; 87811; 93005; 94002; 94003; 94640; 94760; 94799; 99285; A4333; A6196; A6213; A6250; A6258; A6449; C1751; C1758; C9113; G0378; J0692; J1100; J1815; J1956; J2704; J3010; J3370; J3490; J7030; J7040; J7050; J7070; J7120; P9016; P9045; P9047